=== PATIENT | female | born 1960 | race Hispanic/Latino ===

== ENCOUNTER → 2018-05-31 | Day surgery (SDC) | payer OTHER ==
[~2018-05-31] MED LIST: ALIGN4 MG; ASPIRIN81 MG; BACLOFEN10 MG PO; BENADRYL25 M1; FENTANYL CITRATE/PF 100MCG/2 ML INJ ONE; FIBER GUMMIES; HUMALOG100 UNIT/1 SQ; HYOSCYAMINE SULFATE 0.5 MG/ML INJ ONE; JANUMET 50-5001 EACH PO; LANTUS 3ML100 UNITS/; LEVOTHYROXINE75 MCG PO; LISINOPRIL10 MG PO; MAGNESIUM200 MG/1 M; MIDAZOLAM HCL 2 MG/2 ML VIAL ONE; MULTI-VITAMIN1 EACH PO; PROPOFOL IV EMULSION 10 MG/ML 50 ML VIAL ONE; PROTONIX40 MG; SIMVASTATIN40 MG PO; ULTRAM50 MG PO; VITAMIN B-121000 MCG PO; ZYRTEC10 M3; [UNRECOGNIZED DRUG - OTHER]
--- NOTE | 2018-05-31 09:59 | Operative Report ---
DATE OF PROCEDURE: May 31, 2018 REFERRING PHYSICIAN: Dr. Cat Harris. PROCEDURE PERFORMED: Colonoscopy and polypectomy. INDICATIONS FOR COLONOSCOPY: Colorectal cancer screening. MEDICATION: Patient was done under MAC, please see anesthesiologist's note. PROCEDURE: With patient in left lateral decubitus position, the flexible fiberoptic Olympus colonoscope was inserted into the rectum with ease and advanced all the way to the cecum. The sigmoid colon was sharply angulated and negotiated with difficulty and was suboptimally visualized. The scope was then withdrawn slowly. Mucosa overlying the cecum, ascending colon, transverse colon, and descending colon appeared to be within normal limits. Some diverticular disease was noted in the sigmoid colon. Two polyps were hot biopsied from the sigmoid colon. Five polyps were hot biopsied from the rectum. The scope was then retroflexed into the distal rectum and small internal hemorrhoids were noted, none of which is actively bleeding. The scope was then straightened out and was subsequently withdrawn. Patient tolerated the procedure well. IMPRESSION 1. Diverticulosis. 2. Sharply angulated sigmoid colon, negotiated with difficulty and suboptimally visualized. 3. Sigmoid colon polyps x2, hot biopsied. 4. Rectal polyps x5, hot biopsied. 5. Internal hemorrhoids, none actively bleeding. PLAN: Follow up histology. Initiate high-fiber, low-fat diet. Initiate high-fiber supplement. Patient will need a followup colonoscopy in 3 years. Job#: [id number] [facility] cc:DR. CAT HARRIS
--- NOTE | 2018-05-31 10:22 | Operative Report ---
DICTATION CANCELED BY PHYSICIAN REFERRING PHYSICIAN: Dr. Cricket Roach. PROCEDURE PERFORMED: Colonoscopy and polypectomy. INDICATIONS FOR COLONOSCOPY: Personal history of colon polyps, surveillance colonoscopy. MEDICATION: Patient was done under MAC, please see anesthesiologist's note. PROCEDURE: With patient in left lateral decubitus position, the flexible fiberoptic Olympus colonoscope was inserted into the rectum with ease Job#: [id number] JONH
--- OUTSIDE RECORDS SUMMARY | 2018-06-03 13:41 | XMS REPORT | Continuity of Care Document ---
Author Author [facility] Interface Address Unknown Phone Unavailable Problems Problem Status Onset Date Classification Date Reported Comments Source UNK Active 12/24/2017 [facility] Peripheral vascular disease, unspecified 11/16/2017 02/17/2018 [facility] DX: I73.9=PERIPHERAL VASCULAR DISEASE, U Active 11/02/2017 [facility] Z12.31 - ENCNTR SCREEN MAMMOGRAM FOR MA Active 10/18/2016 PATRICK Munoz V76.12 - SCREEN MAMMOGRA Active 06/22/2014 PATRICK Davey DM (<span ID="[id number]">Confirmed</span>) Active Problem 02/17/2018 [facility] Acid reflux Active Problem 02/17/2018 [facility] Hyperlipidemia Active Problem 02/17/2018 [facility] Hypothyroidism Active Problem 02/17/2018 [facility] Medications Medication Details Route Status Patient Instructions Ordering Provider Order Date Source Allergies, Adverse Reactions, Alerts Substance Category Reaction Severity Reaction type Status Date Reported Comments Source Immunizations Immunization Date Given Site Status Last Updated Comments Source Results Order Name Results Value Reference Range Date Interpretation Comments Source Ext Lower Arterial bilat w pressure US Ext Lower Arterial bilat w pressure US Please refer to heart lab report, located under Vascular in [facility]. 11/11/2017 - - Electronically Signed by: Jude Lopez RT 11/12/17 12:24 FINAL REPORT [facility] Breast Mammo Scrn LEOBARDO incl CAD OK Breast Mammo Scrn LEOBARDO incl CAD OK - BREAST MAMMO SCRN LEOBARDO INCL CAD MA BILATERAL DIGITAL SCREENING MAMMOGRAM WITH CAD: 12/07/2016 CLINICAL: Routine. Current study was evaluated with a Computer Aided Detection (CAD) system. Comparison is made to exams dated: 08/15/2015 mammogram, 07/30/2014 mammogram - [facility], 08/07/2013 mammogram, 06/20/2013 mammogram, 06/06/2012 mammogram and 05/10/2011 mammogram - [facility]. There are scattered fibroglandular densities in both breasts. Stable benign appearing asymmetries are seen in both breasts. There are benign appearing vascular calcifications in both breasts. There also are benign appearing scattered calcifications in both breasts. Additionally there is a biopsy clip in the right breast. No significant masses, calcifications, or other findings are seen in either breast. There has been no significant interval change. IMPRESSION: BENIGN There is no mammographic evidence of malignancy. A 1 year screening mammogram is recommended. Professional services are provided by the [facility]. Ervin Zuniga M.D. rsl/penrad:12/07/2016 12:22:07 Janitorial Account Manager: Geni Hess [facility] This exam was dictated and interpreted by [id number] for KEARA Holden 15. letter sent: Bilateral Benign Mammogram BI-RADS: 2 Benign 12/07/2016 - - Read by: Ervin Zuniga MD Dictated Date/time: 12/07/16 12:22 Electronically Signed by: Ervin Zuniga MD 12/07/16 12:22 FINAL REPORT MIRTHA Munoz Digital Mammo Screen Leobardo MA w elsy Digital Mammo Screen Leobardo MA w elsy - DIGITAL MAMMO SCREEN LEOBARDO MA W ELSY BILATERAL DIGITAL SCREENING MAMMOGRAM 3D/2D WITH CAD: 08/15/2015 CLINICAL: Screening. 2D digital mammographic images and 3D digital tomosynthesis images were obtained in the CC and MLO projections. Current study was evaluated with a Computer Aided Detection (CAD) system. Comparison is made to exams dated: 07/30/2014 mammogram - [facility], 08/07/2013 mammogram, 06/20/2013 mammogram, 06/06/2012 mammogram, 05/10/2011 mammogram and 06/15/2010 mammogram - [facility]. There are scattered fibroglandular densities in both breasts. There are benign vascular calcifications in both breasts. There also are benign appearing scattered calcifications in both breasts. Additionally there is a biopsy clip in the right breast. No significant masses, calcifications, or other findings are seen in either breast. IMPRESSION: BENIGN There is no mammographic evidence of malignancy. A screening mammogram in one year is recommended. Sydney Velazquez M.D. ms/:08/16/2015 07:44:52 Janitorial Account Manager: Agatha Bee RT(R)(M), [facility] This exam was dictated and interpreted by [id number] for Tammy 15. letter sent: Bilateral Benign Mammogram BI-RADS: 2 Benign 08/15/2015 - - Read by: Sydney Velazquez MD Dictated Date/time: 08/16/15 07:44 Electronically Signed by: Sydney Velazquez MD 08/16/15 07:44 FINAL REPORT PATRICK Munoz Vital Signs Vital Sign Value Date Comments Source Encounters Location Location Details Encounter Type Encounter Number Reason For Visit Attending Provider ADM Date DC Date Status Source [facility] [id number] Duane Samson 08/15/2015 [facility]16[facility] [id number] Francishoney Marie 12/07/2016 12/08/2016 [facility] Outpatient [id number] Chaparro Merlos 11/11/2017 11/12/2017 [facility] Procedures Procedure Code Date Perfomer Comments Source Carpal tunnel decompression [id number] [facility] Cholecystectomy [id number] [facility] Hysterectomy [id number] [facility] Inject trigger finger/thumb [id number] [facility] Release of trigger finger [id number] [facility]
--- OUTSIDE RECORDS SUMMARY | 2018-06-03 13:41 | XMS REPORT | Summary of Care ---
Author Author [facility] Organization [facility] Address Unknown Phone Unavailable Encounter HQ Encntr_alias(FIN) [id number] Date(s): 11/11/17 - 11/11/17 [facility] [address] [place] [address]- [phone] Encounter Diagnosis Peripheral vascular disease, unspecified (Final) - 11/15/17 Discharge Disposition: Home or Self Care Attending Physician: Chaparro Merlos DPM Referring Physician: Chaparro Merlos DPM Vital Signs No data available for this section Problem List Condition Effective Dates Status Health Status Informant DM (diabetes Active mellitus)(Confirmed) Acid Active reflux(Confirmed) Hyperlipidemia(Confi Active rmed) Hypothyroidism(Confi Active rmed) Allergies, Adverse Reactions, Alerts Substance Reaction Severity Status NKDA Active Medications No data available for this section Results No data available for this section Immunizations No data available for this section Procedures Procedure Date Related Diagnosis Body Site Status Carpal tunnel decompression Completed Carpal tunnel decompression Completed Cholecystectomy Completed Hysterectomy Completed Inject trigger finger/thumb Completed Release of trigger finger Completed Social History Social History Type Response Substance Abuse Use: None. Alcohol Past, Previous treatment: None. Smoking Status Former smoker; Exposure to Tobacco Smoke None; Cigarette Smoking Last 365 Days No; Reg Smoking Cessation Counseling No entered on: 01/30/18 Assessment and Plan No data available for this section
--- OUTSIDE RECORDS SUMMARY | 2018-06-03 13:41 | XMS REPORT | Summary of Care ---
Author Author [facility] Outpatient Imaging [facility] Outpatient Imaging Counsel[facility] Address Unknown Phone Unavailable Encounter HQ Encntr_aliantonio(JAIR) [id number] Date(s): 08/15/15 - 08/15/15 [facility] Outpatient Imaging [address] [place], [place] [id number]- [phone] Discharge Disposition: Home Attending Physician: Duane Samson MD Vital Signs No data available for this section Problem List No data available for this section Allergies, Adverse Reactions, Alerts No data available for this section Medications No data available for this section Results No data available for this section Immunizations No data available for this section Procedures No data available for this section Social History No data available for this section Assessment and Plan No data available for this section
--- OUTSIDE RECORDS SUMMARY | 2018-06-03 13:41 | XMS REPORT | Summary of Care ---
Author Author [facility] Outpatient Imaging [facility] Outpatient Imaging [place] Address Unknown Phone Unavailable Encounter HQ Encntr_alias(FIN) [id number] Date(s): 12/07/16 - 12/07/16 [facility] Outpatient Imaging [place] [address] [place] [address], [address] [place], [place] [address] [phone] Discharge Disposition: Home or Self Care Attending Physician: Francis Xiao MD Vital Signs No data available for [...]
== END | disposition home or self-care (01) ==
LOC: OR 06:00
PROVIDERS: ATTEND Internal Medicine Gastroenterology
DX: Z12.11 Encounter for screening for malignant neoplasm of colon (principal); K63.5 Polyp of colon; K62.1 Rectal polyp; K57.30 Diverticulosis of large intestine without perforation or abscess without bleeding; K56.609 Unspecified intestinal obstruction, unspecified as to partial versus complete obstruction; K59.00 Constipation, unspecified; K64.8 Other hemorrhoids; E11.9 Type 2 diabetes mellitus without complications; I10 Essential (primary) hypertension; Z01.810 Encounter for preprocedural cardiovascular examination; Z79.82 Long term (current) use of aspirin; Z79.4 Long term (current) use of insulin; Z68.35 Body mass index [BMI] 35.0-35.9, adult; Z87.891 Personal history of nicotine dependence
CPT/HCPCS: 36415; 45384; 82948; 93005; J1980; J2250

== ENCOUNTER 2019-09-17 09:27 | Inpatient (IN) | payer OTHER ==
[~2019-09-17] VITALS: Ht 147.3 cm; Wt 80.9 kg
[~2019-09-17 09:27] MED LIST changes: -FENTANYL CITRATE/PF 100MCG/2 ML INJ ONE; -HYOSCYAMINE SULFATE 0.5 MG/ML INJ ONE; -MIDAZOLAM HCL 2 MG/2 ML VIAL ONE; -PROPOFOL IV EMULSION 10 MG/ML 50 ML VIAL ONE
[2019-09-17] MEDS ORDERED: SODIUM CHLORIDE 0.9% 1000ML 1,000 ML IV STA (09:52)
[2019-09-17 10:20] LABS: BILIRUBIN,URINE NEGATIVE (NEGATIVE); CLARITY,URINE CLEAR (CLEAR); COLOR,URINE YELLOW (YELLOW); KETONES,URINE TRACE (NEGATIVE); LEUKOCYTE ESTERASE ,URINE NEGATIVE (NEGATIVE); NITRITE,URINE NEGATIVE (NEGATIVE); PROTEIN,URINE DIPSTICK NEGATIVE (NEGATIVE); URINE UROBILINOGEN 0.2 mg/dL (0.2 - 1)
[2019-09-17 10:21] LABS: PREGNANCY TEST, URINE NEGATIVE (NEGATIVE)
[2019-09-17] MEDS ORDERED: MORPHINE SULFATE 2 MG/ML SYR 1ML IV ONE (10:30)
[2019-09-17] MEDS ORDERED: ONDANSETRON HCL INJ 2MG/ML 2ML 2 MG/ML VIAL IV ONE (10:30)
[2019-09-17] MEDS ORDERED: CEFEPIME 1GM/NS 0.9% 50 ML 50 ML IV SCH (10:30)
[2019-09-17 10:32] LABS: BACTERIA,URINE FEW /HPF; EPITHELIAL CELLS,URINE FEW /LPF; RBC,URINE 0-5 /HPF (0-5); WBC,URINE (MAN) 0-5 /HPF (0-5)
[2019-09-17 10:49] LABS: BASOPHILS # (AUTO) 0.1 (0.0-0.1); BASOPHILS % 0.4 % (0.0-1.0); EOSINOPHILS # (AUTO) 0.1 (0.0-0.4); EOSINOPHILS % 0.2 % (0.0-6.0); HEMATOCRIT 39.3 % (34.2-44.1); HEMOGLOBIN 12.5 g/dL (12.0-16.0); LYMPHOCYTES # (AUTO) 1.7 (1.0-3.2); LYMPHOCYTES % 7.6 % (18.0-39.1); MEAN CORPUSCULAR HEMOGLOBIN 28.2 pg (28-32); MEAN CORPUSCULAR HGB CONC 31.8 g/dL (31-35); MEAN CORPUSCULAR VOLUME 88.5 fL (81-99); MONOCYTES # (AUTO) 1.3 (0.2-0.8); MONOCYTES % 5.6 % (4.4-11.3); NEUTROPHILS # (AUTO) 18.9 (2.1-6.9); PLATELET COUNT 400 x10e3/uL (140-360); RED BLOOD COUNT 4.44 x10e6/uL (3.6-5.1); RED CELL DISTRIBUTION WIDTH 14.8 % (11.7-14.4)
[2019-09-17 11:46] LABS: ALANINE AMINOTRANSFERASE 59 IU/L (0-55); ALBUMIN 3.2 g/dL (3.5-5.0); ALBUMIN/GLOBULIN RATIO 1.2 (0.8-2.0); ALKALINE PHOSPHATASE 66 IU/L (40-150); AMYLASE 88 U/L (25-125); ANION GAP 19.1 mmol/L (8-16); BLOOD UREA NITROGEN 17 mg/dL (7-26); BUN/CREATININE RATIO 19 (6-25); CALCIUM 8.6 mg/dL (8.4-10.2); CARBON DIOXIDE 20 mmol/L (22-29); CHLORIDE 95 mmol/L (98-107); CREATININE, SERUM 0.88 mg/dL (0.57-1.11); EST GLOMERULAR FILTRATION RATE > 60 ML/MIN (60-); GLUCOSE 257 mg/dL (74-118); LIPASE 12 U/L (8-78); SODIUM 129 mmol/L (136-145)
[2019-09-17 11:47] LABS: POTASSIUM 5.1 mmol/L (3.5-5.1)
--- NOTE | 2019-09-17 14:08 | Diagnostic Imaging Report ---
CT scan of the abdomen and pelvis. Medical history: Abdominal pain. Comparison study: None available. Technique: Contiguous helical slices were acquired through the abdomen and pelvis post administration of intravenous contrast. No oral contrast was administered. This exam was performed according to our department dose optimization program which includes automated exposure control, adjustment of the mA and/or kV according to the patient's size and/or use of iterative reconstruction technique. Findings: The visualized lung nichole are clear. The liver, spleen, adrenal glands and kidneys are unremarkable. Cholecystectomy clips are seen with the CBD at the upper limits of normal for a post cholecystectomy patient measuring up to 1.0 cm. No focal pancreatic abnormality is seen. There are no dilated loops of bowel seen suggest obstruction. Significant thickening of the colon is seen extending from the distal transverse colon to the descending colon. Pericolonic stranding is noted. The appendix is not seen but no obvious signs of appendicitis are noted. The uterus has been resected. A 4.8 x 3.5 cm septated mass is seen superior to the vaginal cuff containing a septation with a calcification. No free fluid or free air is seen. The aorta is normal in caliber. Atherosclerosis is seen. No suspicious adenopathy is noted. Some gas is seen in the bladder. Impression: 1. Colitis extending from the distal transverse colon to descending colon. Potential etiologies include infection and inflammatory bowel disease. Ischemic bowel related to the left colic artery would also been the differential. The origin of the BRIAN appears patent. 2. Small focus of gas within the bladder. If there has not been recent bladder instrumentation, a cystitis or fistula cannot be excluded. 3. Status post cholecystectomy with prominence of the CBD. If the patient's biliary enzymes are increased, MRCP could be obtained. 4. Status post hysterectomy with a septated cystic mass containing a calcified septation in the uterine fossa, possibly an ovarian lesion. Further assessment with pelvic ultrasound is recommended to exclude an ovarian mass. Signed by: Romaine Castanon MD on 09/17/2019 2:06 PM
--- OUTSIDE RECORDS SUMMARY | 2019-09-17 15:25 | XMS REPORT ---
Author Author [facility] Address Unknown Phone Unavailable Care Team Providers Care Song Plugger Name Role Phone Mitch ZIMMERMAN Unavailable Unavailable Problems This patient has no known problems. Allergies, Adverse Reactions, Alerts This patient has no known allergies or adverse reactions. Medications This patient has no known medications. Results Test Description Test Time Test Comments Text Results Atomic Results Result Comments CT ABDOMEN/PELVIS W 2019-09-17 13:57:00 [place] [address] Patient Name: ROXANNE HAMILTON MR #: [id number] : 1960 Age/Sex: 59/F Req #: [id number] Adm Physician: Ordered by: DIEGO ZIMMERMAN MD Report #: [id number] Location: ER Room/Bed: Procedure: [id number] CT/CT ABDOMEN/PELVIS W Exam Date: 09/17/19 Exam Time: 1237 REPORT STATUS: Signed CT scan of the abdomen and pelvis. Medical hist ory: Abdominal pain. Comparison study: None available. Technique: Contiguous helical slices were acquired through the abdomen and pelvis post administration of intravenous contrast. No oral contrast was administered. This exam was performed according to our department dose optimization program which includes automated exposure control, adjustment of the mA and/or kV according to the patient's size and/or use of iterative reconstruction technique. Findings: The visualized lung nichole are clear. The liver, spleen, adrenal glands and kidneys are unremarkable. Cholecystectomy clips are seen with the CBD at the upper limits of normal for a post cholecystectomy patient measuring up to 1.0 cm. No focal pancreatic abnormality is seen. There are no dilated loops of bowel seen suggest obstruction. Significant thickening of the colon is seen extending from the distal transverse colon to the descending colon. Pericolonic stranding is noted. The appendix is not seen but no obvious signs of appendicitis are noted. The uterus has been resected. A 4.8 x 3.5 cm septated mass is seen superior to the vaginal cuff containing a septation with a calcification. No free fluid or free air is seen. The aorta is normal in caliber. Atherosclerosis is seen. No suspicious adenopathy is noted. Some gas is seen in the bladder. Impression: 1. Colitis extending from the distal transverse colon to descending colon. Potential etiologies include infection and inflammatory bowel disease. Ischemic bowel related to the left colic artery would also been the differential. The origin of the BRIAN appears patent. 2. Small focus of gas within the bladder. If there has not been recent bladder instrumentation, a cystitis or fistula cannot be excluded. 3. Status post cholecystectomy with prominence of the CBD. If the patient's biliary enzymes are increased, MRCP could be obtained. 4. Status post hysterectomy with a septated cystic mass containing a calcified septation in the uterine fossa, possibly an ovarian lesion. Further assessment with pelvic ultrasound is recommended to exclude an ovarian mass. Signed by: Romaine Castanon MD on 09/17/2019 2:06 PM Dictated By: ROMAINE CASTANON MD 05 Transcribed By: ELIZA on 09/17/191405 COPY TO: DIEGO ZIMMERMAN MD
[2019-09-17] MEDS: PIPER-TAZ 3.375 GM 50 ML IV SCH ×2 (15:30→23:05)
[2019-09-17] MEDS: ONDANSETRON HCL INJ 2MG/ML 2ML 2 MG/ML VIAL IV PRN (15:30)
[2019-09-17] MEDS: SODIUM CHLORIDE 0.9% 1000ML 1,000 ML IV SCH (15:30)
[2019-09-17] MEDS: MORPHINE SULFATE 2 MG/ML SYR 1ML IV PRN (15:30)
[2019-09-17] MEDS: METRONIDAZOLE 500MG/NS 100ML 100 ML IV SCH (17:32)
[2019-09-17] MEDS ORDERED: IOPAMIDOL 370 MG/ML 200 ML INFUS..BTL INJ ONE (18:02)
[2019-09-17] MEDS ORDERED: SODIUM CHLORIDE 0.9% 50ML 50 ML ONE (18:02)
[2019-09-18] MEDS: METRONIDAZOLE 500MG/NS 100ML 100 ML IV SCH ×4 (01:03→20:48)
[2019-09-18] MEDS: SODIUM CHLORIDE 0.9% 1000ML 1,000 ML IV SCH ×4 (05:07→22:31)
[2019-09-18] MEDS: PIPER-TAZ 3.375 GM 50 ML IV SCH ×4 (05:07→21:40)
[2019-09-18 05:28] LABS: BASOPHILS # (AUTO) 0.1 (0.0-0.1); BASOPHILS % 0.5 % (0.0-1.0); EOSINOPHILS # (AUTO) 0.1 (0.0-0.4); EOSINOPHILS % 0.8 % (0.0-6.0); HEMATOCRIT 39.3 % (34.2-44.1); HEMOGLOBIN 12.4 g/dL (12.0-16.0); LYMPHOCYTES # (AUTO) 2.9 (1.0-3.2); LYMPHOCYTES % 23.1 % (18.0-39.1); MEAN CORPUSCULAR HEMOGLOBIN 27.8 pg (28-32); MEAN CORPUSCULAR HGB CONC 31.6 g/dL (31-35); MEAN CORPUSCULAR VOLUME 88.1 fL (81-99); MONOCYTES # (AUTO) 0.8 (0.2-0.8); MONOCYTES % 6.4 % (4.4-11.3); NEUTROPHILS # (AUTO) 8.7 (2.1-6.9); NEUTROPHILS % 67.9 % (38.7-80.0); PLATELET COUNT 429 x10e3/uL (140-360); RED BLOOD COUNT 4.46 x10e6/uL (3.6-5.1); RED CELL DISTRIBUTION WIDTH 14.9 % (11.7-14.4)
[2019-09-18 05:50] LABS: ALANINE AMINOTRANSFERASE 55 IU/L (0-55); ALBUMIN 3.4 g/dL (3.5-5.0); ALKALINE PHOSPHATASE 60 IU/L (40-150); ANION GAP 22.5 mmol/L (8-16); BLOOD UREA NITROGEN 13 mg/dL (7-26); BUN/CREATININE RATIO 16 (6-25); CALCIUM 8.9 mg/dL (8.4-10.2); CARBON DIOXIDE 18 mmol/L (22-29); CHLORIDE 103 mmol/L (98-107); CREATININE, SERUM 0.83 mg/dL (0.57-1.11); EST GLOMERULAR FILTRATION RATE > 60 ML/MIN (60-); GLUCOSE 119 mg/dL (74-118); POTASSIUM 4.5 mmol/L (3.5-5.1); SODIUM 139 mmol/L (136-145)
[2019-09-18] MEDS: MORPHINE SULFATE 2 MG/ML SYR 1ML IV PRN ×2 (07:41→13:37)
--- NOTE | 2019-09-18 09:25 | NUR ---
dr elva tapia at pt bedside
[2019-09-18] MEDS ORDERED: DEXTROSE 50% SYRINGE 50 ML IV PRN (15:15)
[2019-09-18 15:21] VITALS: BP 131/59
[2019-09-18 15:27] VITALS: BP 131/59
--- NOTE | 2019-09-18 15:40 | NUR ---
patient received via stretcher. see admit assess. vitals stable with no distress. abx being started.
[2019-09-18] MEDS: INSULIN LISPRO 100 UNIT/1 ML 3ML VIAL SQ SCH ×2 (16:30→20:28)
[2019-09-18 17:06] VITALS: BP 152/67
--- NOTE | 2019-09-18 19:44 | NUR ---
SBAR report received from fernando GILL, patient seen with spouse at bedside, AOX4, syrian primary language, c/o JOSEPH pain, patient very upset about not seeing the doctor, and would like pain medication for JOSEPH, patient reeducated about colitis and bowel/stomach rest, IV patent flushes well, IV hydration in place, will continue to monitor
[2019-09-18 20:00] VITALS: BP 120/56
[2019-09-18 20:30] VITALS: BP 120/56
[2019-09-18 20:40] VITALS: BP 120/56
[2019-09-19] VITALS (19 sets, daily range): BP systolic 12–174; BP diastolic 47–69
[2019-09-19] MEDS ORDERED: CITRATE OF MAGNESIA 300ML BOTTLE PO ONE ×2 (00:15→08:00)
--- NOTE | 2019-09-19 00:30 | NUR ---
MD Bruno Crawford rounding on patient, pt made aware that in the am she will have colonoscopy, start bowel prep, pt refused Golytely, so MD Bruno Crawford ordered bowel prep to start at 0700 Dulcolax Q30min X 3 doses and mag citrate X 2 doses 0700 0800 respectively, will be endorsed to am shift to start patient, consent in chart for colonoscopy
[2019-09-19] MEDS: ONDANSETRON HCL INJ 2MG/ML 2ML 2 MG/ML VIAL IV PRN (01:55)
--- NOTE | 2019-09-19 01:58 | NUR ---
patient c/o N/V with headache MD Kobe Crawford notified, MD Kwong covering ordered tylenol 650 PO Q4H PRN For JOSEPH
[2019-09-19] MEDS: ACETAMINOPHEN 325 MG TAB PO PRN ×2 (02:15→09:14)
[2019-09-19] MEDS: PANTOPRAZOLE 40 MG 10ML VIAL IV SCH ×3 (02:38→20:36)
[2019-09-19] MEDS: PIPER-TAZ 3.375 GM 50 ML IV SCH ×2 (03:08→08:52)
[2019-09-19] MEDS: METRONIDAZOLE 500MG/NS 100ML 100 ML IV SCH ×3 (05:14→22:43)
[2019-09-19 06:35] LABS: BASOPHILS # (AUTO) 0.2 (0.0-0.1); BASOPHILS % 0.9 % (0.0-1.0); EOSINOPHILS % 0.1 % (0.0-6.0); HEMATOCRIT 46.1 % (34.2-44.1); HEMOGLOBIN 12.9 g/dL (12.0-16.0); LYMPHOCYTES % 5.2 % (18.0-39.1); MEAN CORPUSCULAR HEMOGLOBIN 27.8 pg (28-32); MEAN CORPUSCULAR VOLUME 99.4 fL (81-99); MONOCYTES # (AUTO) 0.8 (0.2-0.8); MONOCYTES % 4.1 % (4.4-11.3); NEUTROPHILS # (AUTO) 17.1 (2.1-6.9); NEUTROPHILS % 85.1 % (38.7-80.0); PLATELET COUNT 382 x10e3/uL (140-360); RED BLOOD COUNT 4.64 x10e6/uL (3.6-5.1); RED CELL DISTRIBUTION WIDTH 15.5 % (11.7-14.4)
--- NOTE | 2019-09-19 06:35 | NUR ---
RECD PT SITTING ON SIDE OF BED ,C/O SOB,023 SATS 100%,APPLIED 02 2L FOR COMFORT.PAGED DR LOBATO,RE;LAB RESULTS.
[2019-09-19] MEDS ORDERED: BISACODYL 5 MG TAB EC PO ONE ×3 (07:00→08:00)
[2019-09-19 07:20] LABS: HYPOCHROMASIA SLIGHT
[2019-09-19] MEDS: CITRATE OF MAGNESIA 300ML BOTTLE PO SCH ×2 (07:53→08:35)
[2019-09-19 07:54] LABS: ALANINE AMINOTRANSFERASE 53 IU/L (0-55); ALBUMIN 3.5 g/dL (3.5-5.0); ALBUMIN/GLOBULIN RATIO 1.1 (0.8-2.0); ALKALINE PHOSPHATASE 86 IU/L (40-150); BLOOD UREA NITROGEN 21 mg/dL (7-26); BUN/CREATININE RATIO 16 (6-25); CALCIUM 9.2 mg/dL (8.4-10.2); CHLORIDE 105 mmol/L (98-107); CREATININE, SERUM 1.33 mg/dL (0.57-1.11); EST GLOMERULAR FILTRATION RATE 41 ML/MIN (60-); GLUCOSE 343 mg/dL (74-118); POTASSIUM 5.7 mmol/L (3.5-5.1); SODIUM 139 mmol/L (136-145)
[2019-09-19] MEDS: INSULIN LISPRO 100 UNIT/1 ML 3ML VIAL SQ SCH (08:00)
[2019-09-19 08:07] LABS: ANION GAP 34.7 mmol/L (8-16); CARBON DIOXIDE < 5 mmol/L (22-29)
--- NOTE | 2019-09-19 09:00 | NUR ---
PT STILL SOB,SPOKE WITH DR LOBATO ,ORDERS GIVEN.
[2019-09-19] MEDS ORDERED: FUROSEMIDE INJ 10 MG/ML 4 ML VIAL IV ONE (09:30)
--- NOTE | 2019-09-19 10:00 | NUR ---
SPOKE WITH DR SPENCER RE; COLON PREP,INFORMED HIN OF PT SOB,AND CRITICAL LABS,ORDERS WRITTEN.
--- NOTE | 2019-09-19 10:55 | NUR ---
SPOKE WITH DR JOYCE RE CONSULT ORDERS WRITTEN ,PT TO BE TRANSFERRED TO ICU.
[2019-09-19 10:58] LABS: ABG HCO3 3 mmol/L (23-28); ABG PCO2 13 mmHg (41-51); ABG PH 6.97 (7.31-7.41); ABG PO2 140 mmHg (80-105)
--- NOTE | 2019-09-19 11:04 | Diagnostic Imaging Report ---
Examination: Single AP view of the chest. COMPARISON: None. INDICATION: pneumonia DISCUSSION: Lines/tubes: None. Lungs: The lungs are well inflated and clear. No pneumonia or pulmonary edema. Pleura: No pleural effusion or pneumothorax. Heart and mediastinum: The heart and the mediastinum are unremarkable. Bones and soft tissues: No acute bony abnormalities. IMPRESSION: 1. No acute cardiopulmonary abnormalities. Signed by: Dr. Cricket Walter M.D. on 09/19/2019 11:02 AM
[2019-09-19] MEDS: ALBUTEROL SULF 0.083% NEB SOLN 3 ML NEB NEB SCH ×4 (11:05→22:50)
[2019-09-19 11:45] LABS: BASOPHILS # (AUTO) 0.3 (0.0-0.1); BASOPHILS % 0.8 % (0.0-1.0); EOSINOPHILS # (AUTO) 0.1 (0.0-0.4); EOSINOPHILS % 0.4 % (0.0-6.0); HEMATOCRIT 47.5 % (34.2-44.1); HEMOGLOBIN 13.6 g/dL (12.0-16.0); LYMPHOCYTES # (AUTO) 2.5 (1.0-3.2); LYMPHOCYTES % 7.3 % (18.0-39.1); MEAN CORPUSCULAR HEMOGLOBIN 28.1 pg (28-32); MEAN CORPUSCULAR HGB CONC 28.6 g/dL (31-35); MEAN CORPUSCULAR VOLUME 98.1 fL (81-99); MONOCYTES # (AUTO) 2.5 (0.2-0.8); MONOCYTES % 7.4 % (4.4-11.3); NEUTROPHILS # (AUTO) 26.6 (2.1-6.9); NEUTROPHILS % 78.7 % (38.7-80.0); PLATELET COUNT 581 x10e3/uL (140-360); RED BLOOD COUNT 4.84 x10e6/uL (3.6-5.1); RED CELL DISTRIBUTION WIDTH 15.9 % (11.7-14.4)
[2019-09-19] MEDS ORDERED: SODIUM CHLORIDE 0.9% 1000ML 1,000 ML IV SCH ×3 (11:45→13:45)
[2019-09-19] MEDS ORDERED: SODIUM CHLORIDE 0.9% 1000ML 1,000 ML IV ONE ×2 (11:45→12:30)
--- NOTE | 2019-09-19 11:52 | NUR ---
PT TRANSFERRED TO ICU VIA BED ,[address],BOLUS FLUIDS INFUSING ORDERED,
[2019-09-19] MEDS ORDERED: VANCOMYCIN 1GM/NS 250 ML 250 ML IV SCH (12:00)
[2019-09-19] MEDS ORDERED: CEFEPIME 1GM/NS 0.9% 50 ML 50 ML IV SCH (12:00)
[2019-09-19] MEDS ORDERED: SODIUM CHLORIDE 0.9% 250ML 250 ML IV SCH (12:15)
[2019-09-19 12:26] LABS: INR 1.1; PROTHROMBIN TIME 14.5 seconds (11.9-14.5)
[2019-09-19 12:27] LABS: PARTIAL THROMBOPLASTIN TIME 28.5 seconds (23.8-35.5)
--- NOTE | 2019-09-19 12:47 | Diagnostic Imaging Report ---
Exam:Abdominal radiograph History:Bowel perforation Comparison: None available Findings: Air within the stomach. Nonobstructive bowel gas pattern. No visualized free air. Impression: Nonobstructive bowel gas pattern Signed by: Dr. Cricket Walter M.D. on 09/19/2019 12:45 PM
[2019-09-19 13:02] LABS: ALANINE AMINOTRANSFERASE 62 IU/L (0-55); ALBUMIN 3.4 g/dL (3.5-5.0); ALBUMIN/GLOBULIN RATIO 1.1 (0.8-2.0); ALKALINE PHOSPHATASE 94 IU/L (40-150); BLOOD UREA NITROGEN 22 mg/dL (7-26); BUN/CREATININE RATIO 14 (6-25); CALCIUM 8.9 mg/dL (8.4-10.2); CHLORIDE 104 mmol/L (98-107); CREATININE, SERUM 1.55 mg/dL (0.57-1.11); EST GLOMERULAR FILTRATION RATE 34 ML/MIN (60-); POTASSIUM 4.8 mmol/L (3.5-5.1); SODIUM 139 mmol/L (136-145)
[2019-09-19 13:08] LABS: ANION GAP 34.8 mmol/L (8-16)
[2019-09-19 13:09] LABS: CARBON DIOXIDE < 5 mmol/L (22-29); GLUCOSE 441 mg/dL (74-118)
[2019-09-19 13:17] LABS: CLARITY,URINE SL CLOUDY (CLEAR); COLOR,URINE YELLOW (YELLOW); LEUKOCYTE ESTERASE ,URINE NEGATIVE (NEGATIVE); NITRITE,URINE NEGATIVE (NEGATIVE)
[2019-09-19 13:18] LABS: BILIRUBIN,URINE NEGATIVE (NEGATIVE); KETONES,URINE 2+ (NEGATIVE); PROTEIN,URINE DIPSTICK NEGATIVE (NEGATIVE); URINE UROBILINOGEN 0.2 mg/dL (0.2 - 1)
[2019-09-19 13:21] LABS: BACTERIA,URINE RARE /HPF; EPITHELIAL CELLS,URINE FEW /LPF
[2019-09-19] MEDS ORDERED: INSULIN REGULAR, HUMAN 100 UNIT/1 ML 3ML VIAL IV ONE (14:00)
[2019-09-19 14:15] LABS: ABG HCO3 3 mmol/L (23-28); ABG PCO2 12 mmHg (41-51); ABG PH 7.05 (7.31-7.41); ABG PO2 127 mmHg (80-105)
[2019-09-19] MEDS ORDERED: INSULIN REGULAR, HUMAN 3ML VL 100 UNIT in SODIUM CHLORIDE 0.9% 100 ML 99 ML IV SCH ×2 (14:15)
[2019-09-19] MEDS ORDERED: SODIUM BICARBONATE 8.4% INJ 50 ML SYR IV ONE (14:30)
--- NOTE | 2019-09-19 14:41 | Diagnostic Imaging Report ---
EXAMINATION: CT of the abdomen and pelvis without contrast. TECHNIQUE: Helical CT images of the abdomen and pelvis were performed from the lung bases to the lesser trochanters. No intravenous contrast was given per renal stone protocol. Coronal and sagittal reformatted images were obtained. Dose modulation, iterative reconstruction, and/or weight based adjustment of the mA/kV was utilized to reduce the radiation dose to as low as reasonably achievable COMPARISON: None. CLINICAL HISTORY: evaluate for bowel perforation DISCUSSION: ABSENCE OF INTRAVENOUS CONTRAST DECREASES SENSITIVITY FOR DETECTION OF FOCAL LESIONS AND VASCULAR PATHOLOGY. ABDOMEN/PELVIS: LOWER THORAX: Unremarkable. HEPATOBILIARY:No focal hepatic lesions. No biliary ductal dilation. Cholecystectomy. SPLEEN: No splenomegaly. PANCREAS: No focal masses or ductal dilatation. ADRENALS: No adrenal nodules. KIDNEYS/URETERS: No hydronephrosis, stones, or solid mass lesions. PELVIC ORGANS/BLADDER: Sorenson catheter in the bladder. Hysterectomy with stable 4.7cm adnexal cystic lesion. PERITONEUM/RETROPERITONEUM: No free air or fluid. LYMPH NODES: No intra-abdominal,retroperitoneal, pelvic or inguinal lymphadenopathy. VESSELS: Limited GI TRACT: Stable colonic wall thickening. Stomach mildly distended. BONES AND SOFT TISSUES: No bony destructive lesions. No soft tissue abnormalities. IMPRESSION: No bowel perforation. Stable colonic wall thickening/colitis. Signed by: Dr. Cricket Walter M.D. on 09/19/2019 2:39 PM
[2019-09-19] MEDS ORDERED: DEXTROSE 50% SYRINGE 50 ML IV PRN (15:00)
[2019-09-19] MEDS: INSULIN REGULAR, HUMAN 3ML VL 100 UNIT in SODIUM CHLORIDE 0.9% 99 ML IV SCH ×2 (15:10)
--- NOTE | 2019-09-19 15:18 | Progress Note ---
DATE: 09/19/2019 Internal Medicine Progress Note SUBJECTIVE: The patient is complaining of shortness of breath, abdominal pain. She is transferred from the medical floor to intensive care unit. She had a blood gas, which showed metabolic acidosis, most likely secondary to sepsis. Earlier, she was found to have colitis on the left side of the colon, started on broad-spectrum IV antibiotics. Dr. Karl Crawford is there for Gastroenterology. Dr. Ervin [place] has been consulted from the Critical Care, Dr. Matt Hdz is a surgeon on the case. PHYSICAL EXAMINATION: HEART: Showed regular rhythm. Normal S1, S2 sound. LUNGS: Clear bilaterally. ABDOMEN: Soft and nontender. No distention. No visceromegaly. EXTREMITIES: Show no evidence of edema. VITAL SIGNS: Blood pressure 146/62, temperature 97.9, heart rate 108 per minute, respiratory rate 18 per minute, oxygen saturation 100%. LABORATORY DATA: On the BMP; sodium 139, potassium 5.2, chloride 105, CO2 is only 6, BUN 21, creatinine 1.33, glucose 343. White blood count is 20,000, hemoglobin 12.9, hematocrit 46.1, and platelet count 382,000. AST 31, ALT 53, total bilirubin 0.2, alkaline phosphatase 86. Lactic acid has been ordered, was elevated also. FINAL IMPRESSION: 1. Sepsis, most likely intraabdominal in origin. 2. Metabolic acidosis secondary to sepsis. 3. Colitis. 4. Acute renal failure. 5. Hyperkalemia. PLAN OF TREATMENT: Continue IV fluids with normal saline at 100 mL an hour. Albuterol q.4 hours. Continue Metronidazole 500 mg IV q.8 hours, Zosyn q.6 hours. Continue vancomycin. Continue Protonix 40 mg twice a day, Zofran 4 mg IV q.4 hours as needed, Tylenol 650 mg q.4 hours as needed. Continue D50 IV push as needed. We are going to do stat CT of the abdomen and pelvis. We are going to consult Dr. Spencer Infectious Disease. CT of the abdomen and pelvis. The patient will remain in the intensive care unit. She is in critical situation. MD MARCELL Pena/MODL /[id number]
--- NOTE | 2019-09-19 15:33 | NUR ---
pulmonary/critical care [id number] Thanks
--- NOTE | 2019-09-19 15:37 | NUR ---
pulmonary/critical care Fluid status remains reasonable for now, with reasonable urine output and good blood pressure. Recent CXR was with clear lung nichole a couple hours ago. We can give more IVF boluses if required. Continue IVF per DKA protocol in addition to the ordered boluses.
[2019-09-19] MEDS ORDERED: SODIUM CHLORIDE 0.9% 500ML 500 ML IV ONE (15:45)
--- NOTE | 2019-09-19 16:09 | Progress Note ---
DATE: 09/19/2019 ADDENDUM: The patient has a high blood sugar. She also had a metabolic acidosis . We are going to reconsulting Dr. Crawford for Endocrinology for starting the insulin drip protocol. The patient also has metabolic acidosis also secondary to sepsis. She is already on broad-spectrum IV antibiotics. She is on IV fluids. Abdominal x-ray will be done. Dr. [place] is on the case from Pulmonary Critical Care. Dr. Spencer will be consulted from Infectious Diseases. Dr. Hdz is on-call also, he is on the case also for surgery. The patient has severe colitis, most likely sepsis. Spencer Kwong MD LAS/MODL /[id number]
[2019-09-19] MEDS: CEFEPIME 2 GM/NS 0.9% 100 ML 100 ML IV SCH (16:11)
[2019-09-19 16:52] LABS: BASOPHILS # (AUTO) 0.2 (0.0-0.1); BASOPHILS % 0.5 % (0.0-1.0); HEMATOCRIT 38.2 % (34.2-44.1); HEMOGLOBIN 11.6 g/dL (12.0-16.0); LYMPHOCYTES # (AUTO) 2.4 (1.0-3.2); LYMPHOCYTES % 7.3 % (18.0-39.1); MEAN CORPUSCULAR HEMOGLOBIN 28.1 pg (28-32); MEAN CORPUSCULAR HGB CONC 30.4 g/dL (31-35); MEAN CORPUSCULAR VOLUME 92.5 fL (81-99); MONOCYTES # (AUTO) 1.9 (0.2-0.8); MONOCYTES % 5.8 % (4.4-11.3); NEUTROPHILS # (AUTO) 26.4 (2.1-6.9); NEUTROPHILS % 80.6 % (38.7-80.0); PLATELET COUNT 466 x10e3/uL (140-360); RED BLOOD COUNT 4.13 x10e6/uL (3.6-5.1); RED CELL DISTRIBUTION WIDTH 15.3 % (11.7-14.4)
[2019-09-19 17:08] LABS: AMYLASE 229 U/L (25-125); LIPASE 10 U/L (8-78)
[2019-09-19 17:16] LABS: BAND NEUTROPHILS % (MANUAL) 2 %; LYMPHOCYTES % (MANUAL) 7 % (19-48); METAMYELOCYTES % (MANUAL) 1 % (0-0); MONOCYTES % (MANUAL) 3 % (3.4-9.0); MYELOCYTES % (MANUAL) 1 % (0-0); NEUTROPHILS % (MANUAL) 86 % (40-74); PLATELET ESTIMATE ADEQUATE; PLATELET MORPHOLOGY COMMENT NORMAL; RBC MORPHOLOGY COMMENT NORMAL
[2019-09-19 17:45] LABS: FREE T4 (FREE THYROXINE) 1.22 ng/dL (0.8-1.8); THYROID STIMULATING HORMONE 0.592 uIU/mL (0.350-4.940)
[2019-09-19 17:50] LABS: ANION GAP 31.8 mmol/L (8-16); CALCIUM 7.9 mg/dL (8.4-10.2); CREATININE, SERUM 1.29 mg/dL (0.57-1.11); POTASSIUM 3.8 mmol/L (3.5-5.1)
[2019-09-19] MEDS: DEXTROSE 5%/0.45% SOD CHL 1,000 ML IV SCH (17:52)
--- NOTE | 2019-09-19 18:00 | NUR ---
Note of shift. Received pt to ICU 189. Multiple critical labs. Dr Carson was aware, orders to correct critical values were not given until Dr Carson was comfortable with differential diagnoses. Dr Carson had ordered for 2 liters NS moderate rate bolus at 500cc/hr then Dr Jazmine Parker ordered a 3rd liter of NS bolus and placement of a NGT to suction. Insulin drip was started and then changed by Dr Crawford coming in to see pt. Dr Crawford was aware of bolus rate and ordered for the D5 1/2 NS to start after all of the NS was infused. The follow up CO2 of [address] Carson and he ordered to recheck pH at 9 pm. Otherwise, pt appears improved.
--- NOTE | 2019-09-19 19:00 | NUR ---
Report received. Assumed care. Assessment done. See interventions.
[2019-09-19] MEDS ORDERED: SODIUM CHLORIDE 0.9% 250ML IRRIG IR SCH (19:45)
[2019-09-19] MEDS ORDERED: SODIUM CHLORIDE 0.9% 250ML 250 ML ONE (20:42)
--- NOTE | 2019-09-19 21:09 | NUR ---
ABG results called to Dr. Carson. No new orders.
[2019-09-19 21:11] LABS: ABG PCO2 20 mmHg (41-51); ABG PH 7.26 (7.31-7.41)
[2019-09-19 21:12] LABS: ABG HCO3 9 mmol/L (23-28); ABG PO2 94 mmHg (80-105)
--- NOTE | 2019-09-19 21:30 | Consultation ---
DATE OF CONSULTATION: 09/19/2019 Endocrine Consultation This is a patient Dr. Crawford. Thank you very much for referring this patient. HISTORY OF PRESENT ILLNESS: This is a 59-year-old lady, who was referred to me for evaluation of diabetic ketoacidosis. The patient reportedly is a known diabetic for almost 15 years and takes a combination of Lantus and Humalog insulin at home. The patient came to the hospital with history of abdominal pain and she was found to have ischemic colitis. During the hospital stay, her blood sugars were high and finally she went into ketoacidosis and severe dehydration. The patient also has history of hypertension and hypothyroidism. PHYSICAL EXAMINATION: GENERAL: Today, the patient is alert and awake. She is short of breath. She has Kussmaul breathing. VITAL SIGNS: Heart rate is around 100 and blood pressure is 120/80 mmHg. HEENT: Essentially unremarkable. Thyroid is palpable. Clinically, she is near euthyroid. CHEST: Bilateral vesicular breathing. She has mild bronchospasm. CARDIAC: First and second heart sounds. There is no third or fourth heart sounds. Ejection systolic murmur sound grade 2/6. ABDOMEN: Distended abdomen and tenderness in the right upper quadrant and epigastric area. EXTREMITIES: The patient has evidence of diabetic sensory neuropathy in both lower extremities. LABORATORY DATA: Her blood sugar today is around 441, anion gap is around 34.9, and her BUN and creatinine are slightly elevated. CLINICAL IMPRESSION: Diabetes mellitus type 2, diabetic ketoacidosis, ischemic colitis, and pelvic mass. PLAN: At this time, aggressively IV fluids, hydration, and insulin drip. We will also do a hemoglobin A1c and thyroid function tests. Thanks again for referring this patient. I will follow this patient with you. MD EDU Bridges/CAMILOL /[id number]
--- NOTE | 2019-09-19 21:40 | Consultation ---
DATE OF CONSULTATION: 09/19/2019 REASON FOR CONSULTATION: Sepsis, colitis. HISTORY OF PRESENT ILLNESS: This patient who is a 59-year-old female, comes to the emergency room with 1-day history of abdominal pain diffuse, mainly in the upper abdomen. Not feeling well, felt feverish, came to the emergency room. She was seen by Surgery. CAT scan was ordered. When she first came, her white count was 22,000, it went up to 33,000; her hematocrit is 47, and her platelets 58. Her sodium 139, potassium 4.8 with creatinine of 1.55. MEDICATIONS: She is currently on insulin, vancomycin, Zosyn, and metronidazole. She had a CAT scan, which was done, discussed with Surgery. There was no bowel perforation, stable colon wall thickening/colitis. She did have colitis extending from the distal transverse colon to descending colon. A small focus of gas within the bladder. REVIEW OF SYSTEMS: CONSTITUTIONAL: She is just really not feeling well. This is the first time she got sick. HEENT: There is no headache or visual changes. GI: No nausea, but there is abdominal discomfort. No diarrhea. PHYSICAL EXAMINATION: GENERAL: She is currently alert, oriented, does not seem to be in acute distress. VITAL SIGNS: Stable, currently afebrile. HEENT: Not icteric. NECK: Supple. CHEST: Clear bilaterally. ABDOMEN: Soft and distended. EXTREMITIES: No edema. SKIN: There is no rash. IMPRESSION: Colitis, getting worse. No perforation. I would recommend to change Flagyl to 500 IV q.6h. Continue with cefepime 2 g q.12h. Check amylase and lipase. Check CBC daily. NG tube to low intermittent suction. The patient denies any eating outside the house or any something bad recently according to her. We will put her on cefepime 2 g q.12h and Flagyl 500 q.6h. stop other antibiotics. Recheck CBC. MD PATRICK Garcia/CAMILOL /[id number]
--- NOTE | 2019-09-19 22:20 | Consultation ---
DATE OF CONSULTATION: 09/19/2019 Pulmonary and Critical Care Medicine Consult REASON FOR REFERRAL: Multiorgan dysfunction pending, evolution. HISTORY OF PRESENT ILLNESS: Ms. Spencer is a pleasant 59-year-old female with critical metabolic acidosis. The patient was admitted to [facility] on September 17, 2019. The patient noted in the emergency room to have abdominal pain. Onset x1 week. Progressively worse. In the emergency room, she proceeded to have abdominal CT demonstrating minimal transverse colitis with descending colon with at least moderate inflammation within the bowel lumen, although not a lot of extra colonic inflammation. Lipase was negative. Lactic acid was 2.6. Serum bicarbonate was 20. Glucose was 257. Chest x-ray was unremarkable. White count was 20,000 with 84% segmented cells and 19% bands. She was admitted. During the course of her hospitalization, she began to have more tachypnea. At this point, the patient had serial blood work today, which demonstrated bicarbonate less than 5. The patient was on the medical floor at that time. White blood count increased to 34,000. ABG 6.97/13/140. Coagulation times unremarkable. Creatinine increasing to 1.55, lactic acid 3.5, minimal transaminitis with AST 52, ALT 62 with normal ammonia and normal alkaline phosphatase. Urine with 6 to 10 white blood cells, but there was 2+ ketones and 2+ glucose. I am consulted. The patient physically moved to the ICU and rapid workup has been underway. PAST MEDICAL HISTORY: Diabetes, hysterectomy, and possible kidney disease. MEDICATIONS: Medication list per the chart record. ALLERGIES: NO KNOWN DRUG ALLERGIES. SOCIAL HISTORY: No smoking, no drinking, and no drugs. Good support system is with spouse reportedly and kids at bedside. FAMILY HISTORY: Noncontributory. REVIEW OF SYSTEMS: Cannot get, as she is low in energy and not maintaining conversation. PHYSICAL EXAMINATION: VITAL SIGNS: Currently afebrile, vital signs reviewed per the chart record. Respiratory rate in 20s. GENERAL: She looks bad, very sick, she barely has energy to speak. HEENT: Normocephalic and atraumatic. NECK: Supple. Throat midline. LUNGS: Bilateral air entry, mostly clear. CARDIOVASCULAR: S1, S2. No murmurs, rubs, or gallops. ABDOMEN: Mostly soft with no surgical tenderness, no rebound, mild guarding, mildly distended, but still soft. EXTREMITIES: No clubbing, no cyanosis, and no edema. INTEGUMENT: No rash. No purpura. LABORATORY DATA: Potassium 5.2, bicarbonate less than 5, BUN 21, creatinine 1.33 earlier, increased to 1.55. Other important labs include lactic acid was 3.5. IMPRESSION AND PLAN: 1. Primary severe metabolic acidosis. 2. Acute respiratory acidosis, failure to compensate for severe metabolic issues. 3. Lactic acidosis. 4. Ketoacidosis, possibly the bigger factor, as we are not finding any other disastrous acute phenomenon. 5. Admitted with colitis. 6. Severe hyperglycemia, diabetes. 7. Acute kidney injury, evolving. 8. Malaise. The patient is critically ill. Acute workup is being done in the hospital rather than in the emergency room. For this reason, there was extra dedicated time to get the results and confirmation of clinical findings. Repeat abdominal CT, which in the interim showed no acute perforation, no significant changes except for the colitis. Cover with insulin IV bolus and then insulin drip. DKA protocol, so we eventually may start dextrose when sugar is below 200. Follow up the potassium. Repeat lipase level. Antibiotics will continue and we will make sure there is no diarrhea. For now, vancomycin, Flagyl, and Zosyn. The patient remains critically ill. The patient is close to intubation, but repeat blood gas showed some improvement of the acidosis, so we will give her a little bit more time prior to consider intubation. In summary, treat for the underlying sepsis and find other hidden diagnosis, but for now, this may be an additional DKA on colitis. We will follow along closely. Greater than 80 minutes in direct care and coordination on this date, multiple evaluations and multiple coordination with care providers and in discussion with family. MD JEAN PIERRE Berumen/MAYELIN /[id number]
[2019-09-20] VITALS (26 sets, daily range): BP systolic 96–134; BP diastolic 36–55
[2019-09-20] MEDS: DEXTROSE 5%/0.45% SOD CHL 1,000 ML IV SCH ×4 (00:38→22:00)
[2019-09-20] MEDS: ALBUTEROL SULF 0.083% NEB SOLN 3 ML NEB NEB SCH ×6 (02:44→23:00)
--- NOTE | 2019-09-20 04:12 | NUR ---
Cleaned for mod mucousy green stool.
[2019-09-20] MEDS: CEFEPIME 2 GM/NS 0.9% 100 ML 100 ML IV SCH ×2 (04:53→17:00)
[2019-09-20 05:24] LABS: BASOPHILS # (AUTO) 0.1 (0.0-0.1); BASOPHILS % 0.3 % (0.0-1.0); HEMATOCRIT 34.1 % (34.2-44.1); HEMOGLOBIN 10.7 g/dL (12.0-16.0); LYMPHOCYTES % 5.1 % (18.0-39.1); MEAN CORPUSCULAR HEMOGLOBIN 28.1 pg (28-32); MEAN CORPUSCULAR HGB CONC 31.4 g/dL (31-35); MEAN CORPUSCULAR VOLUME 89.5 fL (81-99); MONOCYTES # (AUTO) 1.9 (0.2-0.8); NEUTROPHILS # (AUTO) 15.8 (2.1-6.9); NEUTROPHILS % 81.3 % (38.7-80.0); PLATELET COUNT 379 x10e3/uL (140-360); RED BLOOD COUNT 3.81 x10e6/uL (3.6-5.1); RED CELL DISTRIBUTION WIDTH 15.6 % (11.7-14.4)
--- NOTE | 2019-09-20 05:30 | NUR ---
Cleaned for mod mucousy dark green stool.
[2019-09-20] MEDS: METRONIDAZOLE 500MG/NS 100ML 100 ML IV SCH ×3 (06:00→21:51)
[2019-09-20 06:02] LABS: ANION GAP 18.3 mmol/L (8-16); CALCIUM 7.5 mg/dL (8.4-10.2); CREATININE, SERUM 1.08 mg/dL (0.57-1.11); POTASSIUM 3.3 mmol/L (3.5-5.1)
--- NOTE | 2019-09-20 06:03 | Diagnostic Imaging Report ---
EXAMINATION: CHEST SINGLE (PORTABLE) COMPARISON: Chest x-ray 09/19/2019 INDICATION: Shortness of breath, weakness ^screening ^[id number] ^[id number] DISCUSSION: Frontal view of the chest obtained at 0533 hours. HEART AND MEDIASTINUM: Lung volumes are low. This accentuates the cardiac contours. LINES: Enteric tube extends past the diaphragm. LUNGS: Low lung volumes and bibasilar atelectasis. No pneumonia or pulmonary edema. PLEURA: No pleural effusion or pneumothorax. BONES AND SOFT TISSUES: No focal osseous lesion. The soft tissues are normal. IMPRESSION: Low lung volumes and bibasilar atelectasis. Signed by: Dr. Marci Hidalgo MD on 09/20/2019 6:01 AM
[2019-09-20] MEDS: PANTOPRAZOLE 40 MG 10ML VIAL IV SCH ×2 (07:30→21:51)
[2019-09-20] MEDS ORDERED: POTASSIUM CHLORIDE 20MEQ/100ML 200 ML IV ONE (10:30)
[2019-09-20] MEDS ORDERED: LEVOTHYROXINE SODIUM 100 MCG/VIAL IV ONE (12:00)
[2019-09-20] MEDS: ACETAMINOPHEN 325 MG TAB PO PRN (12:09)
[2019-09-20] MEDS ORDERED: SODIUM CHLORIDE 0.9% 250ML 250 ML IV ONE (12:30)
--- NOTE | 2019-09-20 13:43 | Progress Note ---
DATE: 09/20/2019 Internal Medicine Progress Note. SUBJECTIVE: The patient is doing much better today. She vomited only one time, but she is much more alert. PHYSICAL EXAMINATION: VITAL SIGNS: Blood pressure 129/51, temperature 98.2, heart rate 84 per minute, respiratory rate 16 per minute, oxygen saturation 99%. HEART: Showed regular rhythm. Normal S1, S2 sound. LUNGS: Clear bilaterally. ABDOMEN: Soft and nontender. No distention. No visceromegaly. EXTREMITIES: Show no edema. LABORATORY DATA: On the BMP; sodium of 149, potassium 3.3, chloride 120, CO2 of 14, BUN 14, creatinine 1.08, glucose 254. CBC, white blood count 19.3, hemoglobin 10.7, hematocrit 34.1, and platelet count 369,000 PT 14.5, INR 1.10, PTT 28.5. AST 52, ALT 62, total bilirubin 0.2, and alkaline phosphatase 94. IMPRESSION: 1. Sepsis, most secondary to colitis. 2. Colitis. 3. Diabetic ketoacidosis. 4. Acute renal failure. 5. Hypokalemia. 6. Hypernatremia. 7. Gastroesophageal reflux disease. PLAN OF TREATMENT: Continue insulin drip. Continue IV fluids. Continue metronidazole. Continue cefepime. Continue Zofran 4 mg IV q.4 hours, cefepime 2 g IV twice a day, metronidazole 500 g IV q.8 hours. Continue Tylenol 650 mg q.4 hours. Continue D5 normal saline at 150 mL an hour, D50 push as needed for hypoglycemia. DKA protocol is in place the blood sugar. Dr. Karl Crawford, Gastroenterology on the case. The patient had an NG tube to suction. Also, Dr. Matt Hdz, surgeon saw the patient. There is no evidence of any surgical abdomen. Abdomen CT showed colitis, but no perforation. Dr. Spencer will be consulted from Infectious Disease point of view. The patient is slowly getting better. The blood count is lower than what it was before, it went down from 32,000 to , so we are going to replace the potassium today. We are going to recheck the BMP, magnesium level, CBC tomorrow also. Clinically, the patient is improving. FINAL DIAGNOSIS: Metabolic acidosis secondary to DKA and sepsis. Lactic acid is lower at 1.1 today. The patient is in intensive care unit. Book Jacket Cover Machine Operator report has been reviewed also with the blood work and blood culture, which are negative. Urine culture showed contaminant also. The case discussed with the patient and son at the bedside. MD MARCELL Pena/MAYELIN /[id number]
[2019-09-20 16:02] LABS: LYMPHOCYTES % (MANUAL) 3 % (19-48); MONOCYTES % (MANUAL) 14 % (3.4-9.0); NEUTROPHILS % (MANUAL) 83 % (40-74)
[2019-09-20 16:03] LABS: PLATELET ESTIMATE ADEQUATE; PLATELET MORPHOLOGY COMMENT NORMAL; RBC MORPHOLOGY COMMENT NORMAL
--- NOTE | 2019-09-20 16:12 | NUR ---
Pulmonary and Critical Care Medicine DATE 09/20/2019 SUBJECTIVE: patient with NGT in, some output more awake, feeling better. talking insulin drip 3 / hr UOP flatus(+), possible BM IVF 50/hr CXR mild atelectasis REVIEW OF SYSTEMS: No headaches, no rash PHYSICAL EXAMINATION: VITAL SIGNS: vital signs reviewed per the chart record. GENERAL: Pale, breathing comfortably HEENT: Normocephalic and atraumatic. NECK: Supple. Throat midline. LUNGS: Bilateral air entry, mostly clear. CARDIOVASCULAR: S1, S2. No murmurs, rubs, or gallops. ABDOMEN: Softer, nontender, no rebound EXTREMITIES: No clubbing, no cyanosis, no edema. INTEGUMENT: No rash. No purpura. LABORATORY DATA: k 3.3, cr 1.08, hco3 14. wbc 19, hct 34, plt 379 IMPRESSION AND PLAN: 1. Primary severe metabolic acidosis. Apparent DKA, first time DKA onset. 2. Acute respiratory failure, relatively hypercapneic. not requiring intubation. 3. Lactic acidosis mild. 4. Ketoacidosis, possibly the bigger factor, as we are not finding any other disastrous acute phenomenon. 5. Admitted with colitis. 6. diabetes. 7. Acute kidney injury, better 8. low potassium Continue insulin IV insulin drip. --Additional dextrose loading Electrolyte replacement Empiric abx vancomycin, Flagyl, and Zosyn. dvt ppx escalate, no emergent operations apparent We will follow along closely. Thank you Dr Crawford and Dr Kwong
[2019-09-20] MEDS: ENOXAPARIN SOD INJ 40 MG/0.4 ML SYR SC SCH (17:09)
[2019-09-20 18:20] LABS: ANION GAP 22.8 mmol/L (8-16); BLOOD UREA NITROGEN 8 mg/dL (7-26); BUN/CREATININE RATIO 9 (6-25); CALCIUM 8.1 mg/dL (8.4-10.2); CARBON DIOXIDE 11 mmol/L (22-29); CHLORIDE 123 mmol/L (98-107); EST GLOMERULAR FILTRATION RATE > 60 ML/MIN (60-); GLUCOSE 253 mg/dL (74-118); POTASSIUM 3.8 mmol/L (3.5-5.1); SODIUM 153 mmol/L (136-145)
--- NOTE | 2019-09-20 18:45 | NUR ---
Report received. Assumed care. Assessment done. See interventions. IVs: D5 1/2NS @ 130ml/hr & Insulin @ 3 units/hr. 2L NC with good sats.
--- NOTE | 2019-09-20 19:30 | NUR ---
Cleaned for mod loose dark green stool.
[2019-09-20] MEDS: ONDANSETRON HCL INJ 2MG/ML 2ML 2 MG/ML VIAL IV PRN (20:20)
--- NOTE | 2019-09-20 23:11 | NUR ---
Cleaned for large amt mucousy loose dark green stool.
--- NOTE | 2019-09-20 23:19 | NUR ---
c/o accessive diarrhea and abd pain. Call to Dr. Bruno Crawford. Awaiting call back. Dr. Crawford called back shortly after above. Orders given.
[2019-09-20] MEDS ORDERED: DICYCLOMINE HCL 10 MG CAP ONE (23:29)
[2019-09-20] MEDS: DICYCLOMINE HCL 20 MG TAB PO SCH (23:30)
--- NOTE | 2019-09-20 23:30 | NUR ---
Bentyl given per NGT.
[2019-09-21] VITALS (26 sets, daily range): BP systolic 88–158; BP diastolic 45–73
--- NOTE | 2019-09-21 00:06 | NUR ---
Resting quietly at this time.
--- NOTE | 2019-09-21 01:30 | NUR ---
Dr. Bruno Crawford here. Spoke with pt and orders given. OK for few ice chips.
--- NOTE | 2019-09-21 01:39 | NUR ---
Medicated with Lomotil for diarrhea.
[2019-09-21] MEDS ORDERED: DIPHENOXYLATE/ATROPINE TAB NG ONE (01:45)
[2019-09-21] MEDS: ALBUTEROL SULF 0.083% NEB SOLN 3 ML NEB NEB SCH ×6 (03:00→23:00)
[2019-09-21] MEDS: ONDANSETRON HCL INJ 2MG/ML 2ML 2 MG/ML VIAL IV PRN ×2 (03:40→22:51)
[2019-09-21] MEDS: CEFEPIME 2 GM/NS 0.9% 100 ML 100 ML IV SCH ×2 (03:52→15:22)
[2019-09-21 05:15] LABS: BASOPHILS % 0.3 % (0.0-1.0); HEMATOCRIT 32.4 % (34.2-44.1); HEMOGLOBIN 10.7 g/dL (12.0-16.0); LYMPHOCYTES # (AUTO) 1.5 (1.0-3.2); LYMPHOCYTES % 9.7 % (18.0-39.1); MEAN CORPUSCULAR HEMOGLOBIN 28.2 pg (28-32); MEAN CORPUSCULAR VOLUME 85.3 fL (81-99); MONOCYTES # (AUTO) 1.3 (0.2-0.8); MONOCYTES % 8.3 % (4.4-11.3); NEUTROPHILS # (AUTO) 12.3 (2.1-6.9); NEUTROPHILS % 80.8 % (38.7-80.0); PLATELET COUNT 336 x10e3/uL (140-360); RED CELL DISTRIBUTION WIDTH 16.4 % (11.7-14.4)
[2019-09-21] MEDS: DICYCLOMINE HCL 20 MG TAB PO SCH ×3 (05:36→21:15)
[2019-09-21] MEDS: METRONIDAZOLE 500MG/NS 100ML 100 ML IV SCH ×3 (05:36→21:15)
[2019-09-21 05:38] LABS: ANION GAP 13.3 mmol/L (8-16); BLOOD UREA NITROGEN 6 mg/dL (7-26); BUN/CREATININE RATIO 8 (6-25); CALCIUM 8.3 mg/dL (8.4-10.2); CARBON DIOXIDE 19 mmol/L (22-29); CHLORIDE 123 mmol/L (98-107); CREATININE, SERUM 0.78 mg/dL (0.57-1.11); EST GLOMERULAR FILTRATION RATE > 60 ML/MIN (60-); GLUCOSE 196 mg/dL (74-118); POTASSIUM 3.3 mmol/L (3.5-5.1); SODIUM 152 mmol/L (136-145)
[2019-09-21] MEDS: DEXTROSE 5%/0.45% SOD CHL 1,000 ML IV SCH ×2 (05:58→13:10)
[2019-09-21] MEDS ORDERED: POTASSIUM CHLORIDE 20MEQ/100ML 100 ML IV ONE (07:15)
--- NOTE | 2019-09-21 07:16 | NUR ---
Call to Dr. Crawford. Reported K+ 3.3. Orders given for KCL 20 mEq IV.
[2019-09-21] MEDS: PANTOPRAZOLE 40 MG 10ML VIAL IV SCH ×2 (08:48→20:06)
[2019-09-21] MEDS: LEVOTHYROXINE SODIUM 100 MCG/VIAL IV SCH (08:48)
--- NOTE | 2019-09-21 11:40 | NUR ---
IN ICU ON INSULIN DRIP NG TUBE NPO IV ABX X 2
[2019-09-21] MEDS: SOD CHL IV SCH (15:22)
[2019-09-21] MEDS: POTASSIUM CHLORIDE IV SCH (15:22)
[2019-09-21] MEDS: DEXTROSE IV SCH (15:22)
[2019-09-21] MEDS: ENOXAPARIN SOD INJ 40 MG/0.4 ML SYR SC SCH (17:19)
[2019-09-22] VITALS (26 sets, daily range): BP systolic 82–156; BP diastolic 43–100
[2019-09-22] MEDS: SOD CHL IV SCH ×4 (01:06→23:24)
[2019-09-22] MEDS: POTASSIUM CHLORIDE IV SCH ×4 (01:06→23:24)
[2019-09-22] MEDS: DEXTROSE IV SCH ×4 (01:06→23:24)
--- NOTE | 2019-09-22 01:12 | NUR ---
Pulmonary and Critical Care Medicine DATE 09/21/2019 SUBJECTIVE: insulin 2/hr iv drip glucose in 100-200s' increased energy, but more nausea today BM yesterday REVIEW OF SYSTEMS: No headaches, no rash PHYSICAL EXAMINATION: VITAL SIGNS: vital signs reviewed per the chart record. GENERAL: NAD, AO x3 , looks weak HEENT: Normocephalic and atraumatic. NECK: Supple. Throat midline. LUNGS: Bilateral air entry, mostly clear. CARDIOVASCULAR: S1, S2. No murmurs, rubs, or gallops. ABDOMEN: Softer, nontender, no rebound EXTREMITIES: No clubbing, no cyanosis, no edema. INTEGUMENT: No rash. No purpura. LABORATORY DATA: k 3.3, cr 0.76, wbc 15, hct 32 IMPRESSION AND PLAN: 1. Primary severe metabolic acidosis. Apparent DKA, first time DKA onset. 2. Lactic acidosis mild, resolved. 3. Admitted with colitis. 4. diabetes. 5. Acute kidney injury, better 6. low potassium Continue insulin IV insulin drip per endocrinology and until patient with dependable calorie source --Additional dextrose loading Empiric abx vancomycin, Flagyl, and Zosyn. De-escalate vancomycin DVT ppx ice chips, escalate diet when GI/surgery ok We will follow along closely. Thank you Dr Crawford and Dr Kwong
[2019-09-22] MEDS: ALBUTEROL SULF 0.083% NEB SOLN 3 ML NEB NEB SCH ×5 (03:00→23:40)
[2019-09-22] MEDS: ONDANSETRON HCL INJ 2MG/ML 2ML 2 MG/ML VIAL IV PRN ×2 (03:34→21:17)
[2019-09-22] MEDS: CEFEPIME 2 GM/NS 0.9% 100 ML 100 ML IV SCH ×2 (04:17→16:25)
[2019-09-22 04:34] LABS: HEMOGLOBIN 10.2 g/dL (12.0-16.0); MEAN CORPUSCULAR HEMOGLOBIN 27.9 pg (28-32); MEAN CORPUSCULAR HGB CONC 32.9 g/dL (31-35); MEAN CORPUSCULAR VOLUME 84.7 fL (81-99); RED BLOOD COUNT 3.66 x10e6/uL (3.6-5.1); RED CELL DISTRIBUTION WIDTH 16.8 % (11.7-14.4)
[2019-09-22 04:35] LABS: BASOPHILS # (AUTO) 0.1 (0.0-0.1); BASOPHILS % 0.5 % (0.0-1.0); EOSINOPHILS % 0.1 % (0.0-6.0); LYMPHOCYTES # (AUTO) 2.3 (1.0-3.2); LYMPHOCYTES % 19.6 % (18.0-39.1); MONOCYTES # (AUTO) 1.3 (0.2-0.8); MONOCYTES % 11.3 % (4.4-11.3); NEUTROPHILS % 67.7 % (38.7-80.0); PLATELET COUNT 311 x10e3/uL (140-360)
[2019-09-22 04:57] LABS: ANION GAP 12.7 mmol/L (8-16); BLOOD UREA NITROGEN 5 mg/dL (7-26); BUN/CREATININE RATIO 8 (6-25); CALCIUM 8.4 mg/dL (8.4-10.2); CARBON DIOXIDE 20 mmol/L (22-29); CHLORIDE 118 mmol/L (98-107); CREATININE, SERUM 0.64 mg/dL (0.57-1.11); EST GLOMERULAR FILTRATION RATE > 60 ML/MIN (60-); GLUCOSE 153 mg/dL (74-118); POTASSIUM 3.7 mmol/L (3.5-5.1); SODIUM 147 mmol/L (136-145)
[2019-09-22] MEDS: SUCRALFATE 1 GM/10 ML SUSP NG SCH ×3 (05:56→17:16)
[2019-09-22] MEDS: DICYCLOMINE HCL 20 MG TAB PO SCH ×3 (05:56→21:17)
[2019-09-22] MEDS: METRONIDAZOLE 500MG/NS 100ML 100 ML IV SCH ×3 (05:56→21:17)
[2019-09-22] MEDS: PANTOPRAZOLE 40 MG 10ML VIAL IV SCH ×2 (08:23→21:14)
[2019-09-22] MEDS: LEVOTHYROXINE SODIUM 100 MCG/VIAL IV SCH (08:23)
[2019-09-22] MEDS ORDERED: SODIUM CHLORIDE 0.9% 1000ML 1,000 ML IV ONE (11:45)
--- NOTE | 2019-09-22 13:10 | NUR ---
Nutrition Intervention Note RD Recommendation(s) for Physician: - As GI status allows, ADAT to goal of GI Soft - Recommend Ensure Clear TID when diet advanced - Please check Mg and Phos with BMP, replace low lytes as needed - If unable to advance diet within 24-48 hrs, consider Parenteral Nutrition and consult RD for recommendations Plan of Care: RD following, monitoring for tolerance and adequacy Nutrition reason for involvement: Diet- NPO/CL x day 5 RD Assessment 09/22: 59 YOF admitted for colitis and sepsis, seen today per diet of NPO/Cl x 5 days. Pt reports onset of symptoms the morning of the day of admit. She reports prior that am eating well and no GI distress. Pt reports UBW fo 172-178#, no wt loss noted. Pt denies any GI distress currently, continues with NGT in place to LIWS, greenish output noted at time of visit. Pt reports wanting to eat now, awaiting GI or surgery to advance diet per MD notes. All questions and concerns addressed at time of visit. Pt discussed during am rounds. Will continue to monitor. Principal Problems/Diagnoses: colitis, sepsis PMH: DM, HTN, hypothyroidism GI: LBM 09/22 Skin: intact Labs: 09/22: Na 147, K 3.7, BUN 5, Cr 0.64, Gluc 153, POC Gluc 159-184 Meds: carafate, synthroid, protonix, bentyl, abx, zofran Ht: 58 in Wt: 174.56 lb BMI: 36.5 kg/m2 IBW: 95 lb Malnutrition Evaluation (09/22/19) The patient does not meet criteria for a specified degree of malnutrition at this time. Will re-evaluate at follow-up as appropriate. PO intake: <50% of estimated energy requirements for >5 days Weight loss: no wt loss Fat loss: none observed Muscle loss: none observed Supporting Evidence: Fluid accumulation: none observed Functional Status: not assessed Nutrition Prescription (Diet Order): NPO Estimated Nutritional Needs: 950-1080 calories/day (22-25 kcal/kg IBW) 65-86 g protein/day (1.5-2 g pro/kg IBW) Diet Adequacy: Not meeting calorie needs, Not meeting protein needs Diet Tolerance: Diet Education Needs Assessment: Diet education not indicated, patient on temporary/transition diet. Nutrition Care Level: High Nutrition Diagnosis: Inadequate energy and protein intake related to current medical conditions and NGT to LIWS as evidenced by pt remains NPO and not meeting needs. Goal: Patient will meet 75-100% of estimated needs by follow up Progress: N/A Interventions: -fluid, fiber modified diet, Commercial beverage, Recommended Modifications, Collaboration with other providers Monitoring/Evaluation: -Total energy intake, Total protein intake, Modified diet, Liquid supplement, Weight change Signed: Mikayla Kurtz RD, LD, [facility]
[2019-09-22] MEDS: BISMUTH SUBSALICYLATE 262 MG/15 ML 8OZ BTL PO PRN (16:33)
[2019-09-22] MEDS: ENOXAPARIN SOD INJ 40 MG/0.4 ML SYR SC SCH (16:33)
[2019-09-22] MEDS: INSULIN GLARGINE 100 UNITS/ML VIAL SQ SCH (21:14)
[2019-09-22] MEDS: ACETAMINOPHEN 325 MG TAB PO PRN (22:00)
[2019-09-23] VITALS (13 sets, daily range): BP systolic 108–149; BP diastolic 60–83
[2019-09-23] MEDS: SUCRALFATE 1 GM/10 ML SUSP NG SCH ×5 (00:17→23:45)
[2019-09-23] MEDS: ALBUTEROL SULF 0.083% NEB SOLN 3 ML NEB NEB SCH ×3 (03:30→11:00)
--- NOTE | 2019-09-23 03:49 | NUR ---
Pulmonary and Critical Care Medicine DATE 09/22/2019 SUBJECTIVE: insulin 3/hr iv drip IVF ongoing at 130/hr NGT clamped only 150 cc / 12 hrs last night by NGT REVIEW OF SYSTEMS: No headaches, no rash PHYSICAL EXAMINATION: VITAL SIGNS: vital signs reviewed per the chart record. GENERAL: NAD, AO x3 , looks stronger, sat up HEENT: Normocephalic and atraumatic. NECK: Supple. Throat midline. LUNGS: Bilateral air entry, mostly clear. CARDIOVASCULAR: S1, S2. No murmurs, rubs, or gallops. ABDOMEN: Softer, nontender, no rebound EXTREMITIES: No clubbing, no cyanosis, no edema. INTEGUMENT: No rash. No purpura. LABORATORY DATA: k 3.7, cr 0.64. wbc 12, hct 341 IMPRESSION AND PLAN: 1. Primary severe metabolic acidosis. Apparent DKA, first time DKA onset. 2. Lactic acidosis mild, resolved. 3. Admitted with colitis. 4. diabetes. 5. Acute kidney injury, better 6. low potassium Continue insulin IV insulin drip per endocrinology and until patient with dependable calorie source --Additional dextrose loading NGT in place per surgeon, clamped. --NGT per surgeon --diet per surgeon Empiric abx Flagyl, and Zosyn. DVT ppx We will follow along closely. slow mobilization Thank you Dr Crawford and Dr Kwong
[2019-09-23] MEDS: CEFEPIME 2 GM/NS 0.9% 100 ML 100 ML IV SCH ×2 (04:02→16:37)
[2019-09-23] MEDS: ACETAMINOPHEN 325 MG TAB PO PRN (04:03)
[2019-09-23 05:05] LABS: BASOPHILS # (AUTO) 0.1 (0.0-0.1); BASOPHILS % 0.6 % (0.0-1.0); EOSINOPHILS # (AUTO) 0.1 (0.0-0.4); EOSINOPHILS % 1.5 % (0.0-6.0); HEMATOCRIT 29.3 % (34.2-44.1); HEMOGLOBIN 9.8 g/dL (12.0-16.0); LYMPHOCYTES # (AUTO) 2.3 (1.0-3.2); LYMPHOCYTES % 25.9 % (18.0-39.1); MEAN CORPUSCULAR HEMOGLOBIN 28.5 pg (28-32); MEAN CORPUSCULAR HGB CONC 33.4 g/dL (31-35); MEAN CORPUSCULAR VOLUME 85.2 fL (81-99); MONOCYTES # (AUTO) 1.1 (0.2-0.8); MONOCYTES % 12.4 % (4.4-11.3); NEUTROPHILS # (AUTO) 5.2 (2.1-6.9); NEUTROPHILS % 58.5 % (38.7-80.0); PLATELET COUNT 244 x10e3/uL (140-360); RED BLOOD COUNT 3.44 x10e6/uL (3.6-5.1); RED CELL DISTRIBUTION WIDTH 16.7 % (11.7-14.4)
[2019-09-23 05:27] LABS: ANION GAP 10.9 mmol/L (8-16); BLOOD UREA NITROGEN < 5 mg/dL (7-26); BUN/CREATININE RATIO 8 (6-25); CALCIUM 8.2 mg/dL (8.4-10.2); CARBON DIOXIDE 24 mmol/L (22-29); CHLORIDE 107 mmol/L (98-107); CREATININE, SERUM 0.64 mg/dL (0.57-1.11); EST GLOMERULAR FILTRATION RATE > 60 ML/MIN (60-); GLUCOSE 144 mg/dL (74-118); POTASSIUM 3.9 mmol/L (3.5-5.1); SODIUM 138 mmol/L (136-145)
[2019-09-23] MEDS: METRONIDAZOLE 500MG/NS 100ML 100 ML IV SCH ×3 (05:40→21:30)
[2019-09-23] MEDS: DICYCLOMINE HCL 20 MG TAB PO SCH ×3 (06:40→21:30)
[2019-09-23] MEDS: DEXTROSE IV SCH ×3 (07:20→21:31)
[2019-09-23] MEDS: POTASSIUM CHLORIDE IV SCH ×3 (07:20→21:31)
[2019-09-23] MEDS: SOD CHL IV SCH ×3 (07:20→21:31)
[2019-09-23] MEDS: PANTOPRAZOLE 40 MG 10ML VIAL IV SCH ×2 (10:53→20:43)
[2019-09-23] MEDS: LEVOTHYROXINE SODIUM 100 MCG/VIAL IV SCH (10:54)
--- NOTE | 2019-09-23 12:06 | NUR ---
Pulmonary and Critical Care Medicine DATE 09/23/2019 SUBJECTIVE: IVF D51/2 NS at 130/hr insulin 2/hr iv received SQ insulin dose NGT+, starting clears diet REVIEW OF SYSTEMS: No headaches, no rash PHYSICAL EXAMINATION: VITAL SIGNS: vital signs reviewed per the chart record. GENERAL: NAD, AO x3 , looks stronger, sat up HEENT: Normocephalic and atraumatic. NECK: Supple. Throat midline. LUNGS: Bilateral air entry, mostly clear. CARDIOVASCULAR: S1, S2. No murmurs, rubs, or gallops. ABDOMEN: Softer, nontender, no rebound EXTREMITIES: No clubbing, no cyanosis, no edema. INTEGUMENT: No rash. No purpura. LABORATORY DATA: k 3.9. IMPRESSION AND PLAN: 1. Primary severe metabolic acidosis. Apparent DKA, first time DKA onset. 2. Lactic acidosis mild, resolved. 3. Admitted with colitis. Functional ileus 4. diabetes. 5. Acute kidney injury, better 6. low potassium Continue insulin IV insulin drip per endocrinology --Additional dextrose loading --Started SQ insulin, consider stopping IV drip soon NGT in place per surgeon, clamped. --NGT per surgeon Empiric abx Flagyl, and Zosyn. DVT ppx We will follow along closely. mobilization change nebs to prn d/c mariusz Thank you Dr Crawford and Dr Kwong
[2019-09-23] MEDS ORDERED: ALBUTEROL SULF 0.083% NEB SOLN 3 ML NEB NEB PRN (12:15)
[2019-09-23] MEDS: ENOXAPARIN SOD INJ 40 MG/0.4 ML SYR SC SCH (16:37)
--- NOTE | 2019-09-23 18:53 | NUR ---
Yas DONIS'd at [id number]
--- NOTE | 2019-09-23 19:00 | NUR ---
Bedside report received from Gumaro Espinoza RN. Pt sitting up on toilet at this time, is with her.
--- NOTE | 2019-09-23 19:15 | NUR ---
Pt returned to bed from toilet. Monitor and IV reconnected. Care plan reviewed with pt and her . Pt reports no pain or distress at this time. VSS to pt. Call light in reach of the pt. Bed in lowest and locked position.
--- NOTE | 2019-09-23 20:45 | NUR ---
Glory Espinoza RN (charge nurse) assisted the pt to the toilet at this time. Pt instructed to pull red call light string when she is ready to return to bed.
[2019-09-23] MEDS: INSULIN REGULAR, HUMAN 3ML VL 100 UNIT in SODIUM CHLORIDE 0.9% 99 ML IV SCH ×2 (21:34)
[2019-09-23] MEDS: INSULIN GLARGINE 100 UNITS/ML VIAL SQ SCH (21:35)
[2019-09-24] VITALS (7 sets, daily range): BP systolic 98–117; BP diastolic 47–84
--- NOTE | 2019-09-24 02:36 | NUR ---
Dr. Bruno Crawford present and assessing the pt. New orders received, refer to customs and border protection inspector as needed.
[2019-09-24] MEDS: LOPERAMIDE HCL 2 MG CAP PO PRN ×2 (04:06→06:18)
[2019-09-24] MEDS: CEFEPIME 2 GM/NS 0.9% 100 ML 100 ML IV SCH ×2 (04:15→16:00)
[2019-09-24 05:43] LABS: FERRITIN 46.46 ng/mL (4.63-204.00)
[2019-09-24] MEDS: METRONIDAZOLE 500MG/NS 100ML 100 ML IV SCH ×3 (06:08→22:12)
[2019-09-24] MEDS: SUCRALFATE 1 GM/10 ML SUSP NG SCH ×3 (06:08→18:42)
[2019-09-24] MEDS: DEXTROSE IV SCH ×2 (06:09→14:39)
[2019-09-24] MEDS: SOD CHL IV SCH ×2 (06:09→14:39)
[2019-09-24] MEDS: DICYCLOMINE HCL 20 MG TAB PO SCH ×3 (06:09→21:06)
[2019-09-24] MEDS: POTASSIUM CHLORIDE IV SCH ×3 (06:09→20:10)
--- NOTE | 2019-09-24 07:00 | NUR ---
Bedside report given to Mallory Harris RN. Pt reports no pain or discomfort at this time, no distress noted. Care plan reviewed.
[2019-09-24] MEDS: ONDANSETRON HCL INJ 2MG/ML 2ML 2 MG/ML VIAL IV PRN (07:04)
[2019-09-24] MEDS: LEVOTHYROXINE SODIUM 100 MCG/VIAL IV SCH (09:00)
[2019-09-24] MEDS: PANTOPRAZOLE 40 MG 10ML VIAL IV SCH ×2 (09:00→20:50)
[2019-09-24] MEDS: ENOXAPARIN SOD INJ 40 MG/0.4 ML SYR SC SCH (16:41)
[2019-09-24] MEDS: SODIUM CHLORIDE IV SCH (20:10)
[2019-09-24] MEDS: DEXTROSE 5% IV SCH (20:10)
--- NOTE | 2019-09-24 20:47 | NUR ---
Pulmonary and Critical Care Medicine DATE 09/24/2019 SUBJECTIVE: RA fio2 glucose mainly ok, but went as low as 60 feels better tolerating full liquids so far ivf 130/hr REVIEW OF SYSTEMS: No headaches, no rash PHYSICAL EXAMINATION: VITAL SIGNS: vital signs reviewed per the chart record. GENERAL: NAD, AO x3 HEENT: Normocephalic and atraumatic. NECK: Supple. Throat midline. LUNGS: Bilateral air entry, mostly clear. CARDIOVASCULAR: S1, S2. No murmurs, rubs, or gallops. ABDOMEN: Softer, nontender, no rebound EXTREMITIES: No clubbing, no cyanosis, no edema. INTEGUMENT: No rash. No purpura. LABORATORY DATA: no new updates IMPRESSION AND PLAN: 1. Primary severe metabolic acidosis. First time DKA onset. 2. Lactic acidosis mild, resolved. 3. Admitted with colitis. Functional ileus 4. Diabetes. 5. Acute kidney injury, better SQ insulin per endocrinology --Consider stopping IV drip soon NGT d/c Escalate PO diet as tolerated Empiric abx Flagyl, and Zosyn. DVT ppx We will follow along closely. mobilization Thank you Dr Crawford and Dr Kwong
[2019-09-24] MEDS: INSULIN GLARGINE 100 UNITS/ML VIAL SQ SCH (20:50)
--- NOTE | 2019-09-24 21:06 | NUR ---
reports given to Marianela GILL, patient moved to rm 199.
[2019-09-25] VITALS: BP 103/69
[2019-09-25 04:00] VITALS: BP 109/46
[2019-09-25] MEDS: SODIUM CHLORIDE IV SCH (04:00)
[2019-09-25] MEDS: POTASSIUM CHLORIDE IV SCH ×3 (04:00→20:43)
[2019-09-25] MEDS: DEXTROSE 5% IV SCH (04:00)
[2019-09-25] MEDS: INSULIN REGULAR, HUMAN 3ML VL 100 UNIT in SODIUM CHLORIDE 0.9% 99 ML IV SCH ×4 (04:00)
[2019-09-25] MEDS: CEFEPIME 2 GM/NS 0.9% 100 ML 100 ML IV SCH ×2 (05:00→17:09)
[2019-09-25] MEDS: ACETAMINOPHEN 325 MG TAB PO PRN ×3 (05:30→06:08)
[2019-09-25] MEDS: SUCRALFATE 1 GM/10 ML SUSP NG SCH ×4 (05:30→17:24)
[2019-09-25] MEDS: DICYCLOMINE HCL 20 MG TAB PO SCH ×3 (06:08→20:36)
[2019-09-25] MEDS: METRONIDAZOLE 500MG/NS 100ML 100 ML IV SCH ×3 (06:09→20:36)
[2019-09-25 07:15] VITALS: BP 103/53
[2019-09-25 07:16] VITALS: BP 103/53
[2019-09-25] MEDS: LEVOTHYROXINE SODIUM 100 MCG/VIAL IV SCH (08:54)
[2019-09-25] MEDS: PANTOPRAZOLE 40 MG 10ML VIAL IV SCH ×2 (08:54→20:36)
[2019-09-25] MEDS: SOD CHL IV SCH ×2 (11:03→20:43)
[2019-09-25] MEDS: DEXTROSE IV SCH ×2 (11:03→20:43)
--- NOTE | 2019-09-25 11:16 | NUR ---
Pulmonary and Critical Care Medicine DATE 09/25/2019 SUBJECTIVE: tolerating full liquids ivf 130/hr insulin 3/ hr iv drip RA , sat 100% REVIEW OF SYSTEMS: No headaches, no rash PHYSICAL EXAMINATION: VITAL SIGNS: vital signs reviewed per the chart record. GENERAL: NAD, AO x3 HEENT: Normocephalic and atraumatic. NECK: Supple. Throat midline. LUNGS: Bilateral air entry, mostly clear. CARDIOVASCULAR: S1, S2. No murmurs, rubs, or gallops. ABDOMEN: Softer, nontender, no rebound EXTREMITIES: No clubbing, no cyanosis, no edema. INTEGUMENT: No rash. No purpura. LABORATORY DATA: no new updates IMPRESSION AND PLAN: 1. Primary severe metabolic acidosis. First time DKA onset. 2. Lactic acidosis mild, resolved. 3. Admitted with colitis. Functional ileus 4. Diabetes. 5. Acute kidney injury, better SQ insulin per endocrinology -- IV insulin drip for now Escalate PO diet as tolerated Empiric abx Flagyl, and Zosyn. DVT ppx We will follow along closely. mobilization can leave the ICU Thank you Dr Crawford and Dr Kwong
[2019-09-25 12:03] VITALS: BP 122/56
[2019-09-25] MEDS: DIPHENOXYLATE/ATROPINE TAB PO PRN (12:23)
--- NOTE | 2019-09-25 14:20 | NUR ---
dr dawson rounded. per , add humalog qith meals, also sliding scale. insulin drip currently at 3u/hr. adjust to 2u/hr now and taper down q2hrs until drip dc
--- NOTE | 2019-09-25 16:41 | NUR ---
Nutrition Reassessment Note RD Recommendation(s) for Physician: - Continue GI soft/diabetic diet Plan of Care: RD following, monitoring for tolerance and adequacy Nutrition reason for involvement: follow up RD Assessment 09/25: Pt was sleeping at time of visit. Pt was advanced to a GI soft/diabetic diet from a liquid diet last night. RN reports pt is tolerating diet. It is recorded that pt consumed 100% of dinner meal yesterday. Pt also has loose stools per RN. Will continue to monitor. 09/22: 59 YOF admitted for colitis and sepsis, seen today per diet of NPO/Cl x 5 days. Pt reports onset of symptoms the morning of the day of admit. She reports prior that am eating well and no GI distress. Pt reports UBW fo 172-178#, no wt loss noted. Pt denies any GI distress currently, continues with NGT in place to LIWS, greenish output noted at time of visit. Pt reports wanting to eat now, awaiting GI or surgery to advance diet per MD notes. All questions and concerns addressed at time of visit. Pt discussed during am rounds. Will continue to monitor. Principal Problems/Diagnoses: colitis, sepsis PMH: DM, HTN, hypothyroidism GI: LBM 09/25 Skin: intact Labs: 09/25: (last documented labs 09/23) Na 138, K 3.9, BUN <5 Cr 0.64, Glu 144 09/22: Na 147, K 3.7, BUN 5, Cr 0.64, Gluc 153, POC Gluc 159-184 Meds: levothyroxine, protonix, insulin, zofran, imodium Ht: 58 in Wt: 173 lbs (09/23) 174.56 lb (09/22) BMI: 36.2 kg/m2 IBW: 95 lb Malnutrition Evaluation (09/22/19) The patient does not meet criteria for a specified degree of malnutrition at this time. Will re-evaluate at follow-up as appropriate. PO intake: <50% of estimated energy requirements for >5 days Weight loss: no wt loss Fat loss: none observed Muscle loss: none observed Supporting Evidence: Fluid accumulation: none observed Functional Status: not assessed Nutrition Prescription (Diet Order): GI soft/diabetic diet Estimated Nutritional Needs: 950-1080 calories/day (22-25 kcal/kg IBW) 65-86 g protein/day (1.5-2 g pro/kg IBW) Diet Adequacy: Pt was started on a GI soft diet last night and it is recorded that pt consumed 100% of dinner meal yesterday. Diet Tolerance: Tolerating PO Diet Education Needs Assessment: Pt was sleeping at time of visit. RD is available for diet education as needed Nutrition Care Level: moderate Nutrition Diagnosis: Inadequate energy and protein intake related to current medical conditions and NGT to LIWS as evidenced by pt remains NPO and not meeting needs. (RESOLVED - pt is now on a a GI soft/diabetic diet) Goal: Patient will meet 75-100% of estimated needs by follow up Progress: Progressing Interventions: -fiber, carbohydrate modified diet, Collaboration with other providers Monitoring/Evaluation: -Total energy intake, Total protein intake, Modified diet, Weight change Signed: Agatha Diaz RD, LD
[2019-09-25] MEDS: INSULIN LISPRO 100 UNIT/1 ML 3ML VIAL SQ SCH ×3 (17:09→20:42)
[2019-09-25] MEDS: ENOXAPARIN SOD INJ 40 MG/0.4 ML SYR SC SCH (17:24)
[2019-09-25] MEDS: INSULIN GLARGINE 100 UNITS/ML VIAL SQ SCH (20:42)
[2019-09-25 21:00] VITALS: BP 120/65
[2019-09-26] VITALS (8 sets, daily range): BP systolic 94–128; BP diastolic 42–60
[2019-09-26] MEDS ORDERED: IRON SUCROSE 100 MG in SODIUM CHLORIDE 0.9% 100 ML 100 ML IV SCH ×2
[2019-09-26] MEDS: SUCRALFATE 1 GM/10 ML SUSP NG SCH ×4 (00:05→17:12)
[2019-09-26] MEDS: CEFEPIME 2 GM/NS 0.9% 100 ML 100 ML IV SCH ×2 (03:34→16:11)
[2019-09-26] MEDS: METRONIDAZOLE 500MG/NS 100ML 100 ML IV SCH ×3 (03:34→21:02)
[2019-09-26 05:18] LABS: BASOPHILS # (AUTO) 0.1 (0.0-0.1); BASOPHILS % 0.7 % (0.0-1.0); EOSINOPHILS # (AUTO) 0.4 (0.0-0.4); EOSINOPHILS % 6.1 % (0.0-6.0); HEMOGLOBIN 9.5 g/dL (12.0-16.0); LYMPHOCYTES # (AUTO) 2.1 (1.0-3.2); LYMPHOCYTES % 30.6 % (18.0-39.1); MEAN CORPUSCULAR HEMOGLOBIN 27.6 pg (28-32); MEAN CORPUSCULAR HGB CONC 31.7 g/dL (31-35); MEAN CORPUSCULAR VOLUME 87.2 fL (81-99); MONOCYTES # (AUTO) 0.9 (0.2-0.8); MONOCYTES % 12.6 % (4.4-11.3); NEUTROPHILS # (AUTO) 3.3 (2.1-6.9); NEUTROPHILS % 47.6 % (38.7-80.0); PLATELET COUNT 282 x10e3/uL (140-360); RED BLOOD COUNT 3.44 x10e6/uL (3.6-5.1); RED CELL DISTRIBUTION WIDTH 16.5 % (11.7-14.4)
[2019-09-26 05:46] LABS: BLOOD UREA NITROGEN 9 mg/dL (7-26); BUN/CREATININE RATIO 12 (6-25); CALCIUM 8.1 mg/dL (8.4-10.2); CARBON DIOXIDE 24 mmol/L (22-29); CHLORIDE 100 mmol/L (98-107); CREATININE, SERUM 0.77 mg/dL (0.57-1.11); EST GLOMERULAR FILTRATION RATE > 60 ML/MIN (60-); GLUCOSE 390 mg/dL (74-118); MAGNESIUM 1.6 MG/DL (1.3-2.1); SODIUM 131 mmol/L (136-145)
[2019-09-26] MEDS: DICYCLOMINE HCL 20 MG TAB PO SCH ×3 (06:35→21:02)
[2019-09-26] MEDS: INSULIN LISPRO 100 UNIT/1 ML 3ML VIAL SQ SCH ×8 (07:08→21:04)
[2019-09-26] MEDS: SOD CHL IV SCH (08:17)
[2019-09-26] MEDS: DEXTROSE IV SCH (08:17)
[2019-09-26] MEDS: POTASSIUM CHLORIDE IV SCH (08:17)
[2019-09-26] MEDS: LOPERAMIDE HCL 2 MG CAP PO PRN (08:41)
[2019-09-26] MEDS: DIPHENOXYLATE/ATROPINE TAB PO PRN (08:41)
[2019-09-26] MEDS: PANTOPRAZOLE 40 MG 10ML VIAL IV SCH ×2 (08:41→21:01)
[2019-09-26] MEDS: LEVOTHYROXINE SODIUM 100 MCG/VIAL IV SCH (08:41)
[2019-09-26] MEDS: IRON SUCROSE 100 MG in SODIUM CHLORIDE 0.9% 100 ML 100 ML IV SCH (08:56)
--- NOTE | 2019-09-26 13:28 | NUR ---
Pulmonary and Critical Care Medicine DATE 09/26/2019 SUBJECTIVE: increased glucose levels insulin off yesterday, stable anion gap IVF weaning off ? ate well REVIEW OF SYSTEMS: No headaches, no rash PHYSICAL EXAMINATION: VITAL SIGNS: vital signs reviewed per the chart record. GENERAL: NAD, AO x3 HEENT: Normocephalic and atraumatic. NECK: Supple. Throat midline. LUNGS: Bilateral air entry, mostly clear. CARDIOVASCULAR: S1, S2. No murmurs, rubs, or gallops. ABDOMEN: Softer, nontender, no rebound EXTREMITIES: No clubbing, no cyanosis, no edema. INTEGUMENT: No rash. No purpura. LABORATORY DATA: k 5.0, hco3 24, cr 0.77. wbc 7, hct 30, plt 282 IMPRESSION AND PLAN: 1. Primary severe metabolic acidosis. First time DKA onset. 2. Lactic acidosis mild, resolved. 3. Admitted with colitis. Functional ileus 4. Diabetes. 5. Acute kidney injury, better SQ insulin -- IV insulin drip dc for now. -- adjust insulin per endocrine expert -- prn labs, follow anion gap Escalate PO diet as tolerated Empiric abx Flagyl, and Zosyn. DVT ppx We will follow along closely. mobilization Thank you Dr Crawford and Dr Kwong
[2019-09-26] MEDS: BISMUTH SUBSALICYLATE 262 MG/15 ML 8OZ BTL PO PRN (15:48)
[2019-09-26] MEDS: ENOXAPARIN SOD INJ 40 MG/0.4 ML SYR SC SCH (16:18)
[2019-09-26] MEDS ORDERED: INSULIN GLARGINE 100 UNITS/ML VIAL SQ SCH (21:00)
[2019-09-27] VITALS (8 sets, daily range): BP systolic 107–132; BP diastolic 48–61
[2019-09-27] MEDS: SUCRALFATE 1 GM/10 ML SUSP NG SCH ×3 (00:02→11:24)
[2019-09-27] MEDS: CEFEPIME 2 GM/NS 0.9% 100 ML 100 ML IV SCH ×2 (03:40→15:20)
[2019-09-27] MEDS: DICYCLOMINE HCL 20 MG TAB PO SCH ×3 (06:04→20:10)
[2019-09-27] MEDS: METRONIDAZOLE 500MG/NS 100ML 100 ML IV SCH ×3 (06:04→20:10)
[2019-09-27] MEDS: INSULIN LISPRO 100 UNIT/1 ML 3ML VIAL SQ SCH ×7 (07:40→20:13)
[2019-09-27] MEDS: PANTOPRAZOLE 40 MG 10ML VIAL IV SCH (08:49)
[2019-09-27] MEDS: LEVOTHYROXINE SODIUM 100 MCG/VIAL IV SCH (08:49)
[2019-09-27] MEDS: IRON SUCROSE 100 MG in SODIUM CHLORIDE 0.9% 100 ML 100 ML IV SCH (08:50)
--- NOTE | 2019-09-27 12:53 | NUR ---
Pulmonary and Critical Care Medicine DATE 09/27/2019 SUBJECTIVE: increased glucose levels but usually 200's less labile than yesterday RA FIO2 out of bed tolerating diet REVIEW OF SYSTEMS: No headaches, no rash PHYSICAL EXAMINATION: VITAL SIGNS: vital signs reviewed per the chart record. GENERAL: NAD, AO x3 HEENT: Normocephalic and atraumatic. NECK: Supple. Throat midline. LUNGS: Bilateral air entry, mostly clear. CARDIOVASCULAR: S1, S2. No murmurs, rubs, or gallops. ABDOMEN: Softer, nontender, no rebound EXTREMITIES: No clubbing, no cyanosis, 1+ edema. INTEGUMENT: No rash. No purpura. LABORATORY DATA: no new updates IMPRESSION AND PLAN: 1. Primary severe metabolic acidosis. First time DKA onset. 2. Lactic acidosis mild, resolved. 3. Admitted with colitis. Functional ileus 4. Diabetes. Uncontrolled still 5. Acute kidney injury, better SQ insulin -- adjust SQ insulin per endocrine expert -- prn labs, follow anion gap Escalate PO diet as tolerated Empiric abx Flagyl, and Zosyn. DVT ppx We will follow along closely. mobilization Thank you Dr Crawford and Dr Kwong
[2019-09-27] MEDS ORDERED: PANTOPRAZOLE SOD 40 MG TABEC PO SCH (13:30)
--- NOTE | 2019-09-27 14:25 | NUR ---
Visit made by the Spiritual Care Department Pastoral Visitor, Macho Asher. PV provided pastoral presence, hospitality, and supportive listening. Pastoral Visitor informed pt/family of the scope of [employer] and availability. MEHRAN CHRIS Maintenance Repairman Spiritual Care Department O: [phone] Pager: [phone] ([phone] number calling from)
[2019-09-27] MEDS: ACETAMINOPHEN 325 MG TAB PO PRN (15:30)
[2019-09-27] MEDS: SUCRALFATE 1 GM/10 ML SUSP PO SCH ×2 (16:17→21:22)
[2019-09-27] MEDS: PANTOPRAZOLE SOD 40 MG TABEC PO SCH (20:10)
[2019-09-27] MEDS ORDERED: INSULIN GLARGINE 100 UNITS/ML VIAL SQ SCH (21:00)
--- NOTE | 2019-09-28 02:55 | NUR ---
PATIENT CALLED NURSE TO ROOM STATING SHE'S SWEATING AND FEELS HER BLOOD GLUCOSE IS LOW. NURSE CHECKED AND PATIENT'S BLOOD GLUCOSE IS 59. PROVIDED PATIENT WITH SANDWICH, PUDDING AND MILK TO DRINK. RECHECK OF BLOOD SUGAR NOW SHOWS BLOOD SUGAR ABOVE 280.
[2019-09-28] MEDS: CEFEPIME 2 GM/NS 0.9% 100 ML 100 ML IV SCH (04:05)
[2019-09-28 04:18] VITALS: BP 132/82
[2019-09-28] MEDS: METRONIDAZOLE 500MG/NS 100ML 100 ML IV SCH (05:08)
[2019-09-28] MEDS: DICYCLOMINE HCL 20 MG TAB PO SCH (05:08)
[2019-09-28] MEDS: SUCRALFATE 1 GM/10 ML SUSP PO SCH ×2 (05:08→11:30)
[2019-09-28] MEDS ORDERED: LEVOTHYROXINE SODIUM 75 MCG TAB PO SCH (06:00)
[2019-09-28 06:32] LABS: BASOPHILS % 0.5 % (0.0-1.0); EOSINOPHILS # (AUTO) 0.2 (0.0-0.4); EOSINOPHILS % 2.7 % (0.0-6.0); HEMATOCRIT 31.7 % (34.2-44.1); LYMPHOCYTES % 33.6 % (18.0-39.1); MEAN CORPUSCULAR HEMOGLOBIN 27.8 pg (28-32); MEAN CORPUSCULAR HGB CONC 31.5 g/dL (31-35); MEAN CORPUSCULAR VOLUME 88.1 fL (81-99); MONOCYTES # (AUTO) 0.9 (0.2-0.8); MONOCYTES % 15.2 % (4.4-11.3); NEUTROPHILS # (AUTO) 2.7 (2.1-6.9); PLATELET COUNT 304 x10e3/uL (140-360)
[2019-09-28 06:38] LABS: ANION GAP 14.6 mmol/L (8-16); BLOOD UREA NITROGEN 10 mg/dL (7-26); BUN/CREATININE RATIO 12 (6-25); CALCIUM 8.4 mg/dL (8.4-10.2); CARBON DIOXIDE 25 mmol/L (22-29); CHLORIDE 97 mmol/L (98-107); CREATININE, SERUM 0.83 mg/dL (0.57-1.11); EST GLOMERULAR FILTRATION RATE > 60 ML/MIN (60-); POTASSIUM 4.6 mmol/L (3.5-5.1); SODIUM 132 mmol/L (136-145)
[2019-09-28 06:44] LABS: GLUCOSE 485 mg/dL (74-118)
[2019-09-28 07:03] VITALS: BP 135/58
[2019-09-28] MEDS: INSULIN LISPRO 100 UNIT/1 ML 3ML VIAL SQ SCH ×4 (07:42→12:00)
--- NOTE | 2019-09-28 07:54 | NUR ---
Called Dr. Crawford's @[phone] made aware patient's accu check 431, and patient's glucose serum 485, I also informed MD I covered patient with sliding scale and administered 20 units Humalog, and given insulin with meals 10 units. No new orders received.
[2019-09-28 08:19] VITALS: BP 135/58
[2019-09-28] MEDS: PANTOPRAZOLE SOD 40 MG TABEC PO SCH (09:34)
[2019-09-28] MEDS: IRON SUCROSE 100 MG in SODIUM CHLORIDE 0.9% 100 ML 100 ML IV SCH (09:57)
[2019-09-28 10:10] VITALS: BP 133/55
[2019-09-28 14:20] VITALS: BP 133/62
--- NOTE | 2019-09-28 15:31 | NUR ---
Called Dr. Crawford made aware patient checked her own sugar at time of discharge and glucose level 67 patient alert and oriented x4, verbalizing needs, and I gave patient orange juice and vanilla pudding. Received orders to keep her for about 1 hour recheck glucose if glucose within normal limits she may leave home and call her parts counter representative to schedule appointment.
--- NOTE | 2019-09-28 16:00 | NUR ---
Patient glucose 133, patient discharged home verbalized understanding of d/c instructions, escorted patient in wheel chair to front of the hospital.
--- NOTE | 2019-09-28 22:52 | NUR ---
Pulmonary and Critical Care Medicine DATE 09/28/2019 SUBJECTIVE: labile glucose. went to 59. naresh to 400s eating 100% sat RA fio2 REVIEW OF SYSTEMS: No headaches, no rash PHYSICAL EXAMINATION: VITAL SIGNS: vital signs reviewed per the chart record. GENERAL: NAD, AO x3 HEENT: Normocephalic and atraumatic. NECK: Supple. Throat midline. LUNGS: Bilateral air entry, mostly clear. CARDIOVASCULAR: S1, S2. No murmurs, rubs, or gallops. ABDOMEN: Softer, nontender, no rebound EXTREMITIES: No clubbing, no cyanosis, 1+ edema. INTEGUMENT: No rash. No purpura. LABORATORY DATA: no new updates IMPRESSION AND PLAN: 1. Primary severe metabolic acidosis. First time DKA onset. 2. Lactic acidosis mild, resolved. 3. Admitted with colitis. Functional ileus 4. Diabetes. Uncontrolled still 5. Acute kidney injury, better SQ insulin -- adjust SQ insulin per endocrine expert Escalate PO diet as tolerated Empiric abx Flagyl, and Zosyn. DVT ppx We will follow along closely. mobilization possible discharge per pt today Thank you Dr Crawford and Dr Kwong
== END 2019-09-28 16:38 | disposition home or self-care (01) | DRG 871 ==
LOC: ER 09:27 → ERHOLD 14:28 → MED/SURG3 09-18 13:45 → ICU 09-19 11:52 → IMCU 09-24 21:06
DX: A41.9 Sepsis, unspecified organism (principal); E11.10 Type 2 diabetes mellitus with ketoacidosis without coma; E87.2 Acidosis; N17.9 Acute kidney failure, unspecified; K55.9 Vascular disorder of intestine, unspecified; E87.0 Hyperosmolality and hypernatremia; E87.4 Mixed disorder of acid-base balance; A09 Infectious gastroenteritis and colitis, unspecified; R53.81 Other malaise; K21.9 Gastro-esophageal reflux disease without esophagitis; E11.22 Type 2 diabetes mellitus with diabetic chronic kidney disease; N18.9 Chronic kidney disease, unspecified; Z79.4 Long term (current) use of insulin; E03.9 Hypothyroidism, unspecified; E11.42 Type 2 diabetes mellitus with diabetic polyneuropathy; N85.8 Other specified noninflammatory disorders of uterus; E66.9 Obesity, unspecified; Z68.36 Body mass index [BMI] 36.0-36.9, adult; D64.9 Anemia, unspecified; E87.5 Hyperkalemia; E87.6 Hypokalemia
CPT/HCPCS: 36415; 36600; 71045; 74018; 74019; 74176; 74177; 80048; 80053; 81001; 81025; 82140; 82150; 82607; 82728; 82746; 82805; 82948; 83036; 83540; 83605; 83690; 83735; 84132; 84439; 84443; 84466; 85025; 85045; 85610; 85730; 87040; 87086; 87493; 94640; 96372; 99284; J0692; J1650; J1756; J1815; J1817; J1940; J2270; J2405; J2543; J3370; J3480; J7030; J7050; J7070; Q9967

== ENCOUNTER → 2020-11-08 | Day surgery (SDC) | payer OTHER ==
[2020-11-04 09:12] LABS: ANION GAP 15.9 mmol/L (8-16); BLOOD UREA NITROGEN 13 mg/dL (7-26); BUN/CREATININE RATIO 15 (6-25); CALCIUM 8.8 mg/dL (8.4-10.2); CARBON DIOXIDE 28 mmol/L (22-29); CHLORIDE 94 mmol/L (98-107); CREATININE, SERUM 0.84 mg/dL (0.57-1.11); EST GLOMERULAR FILTRATION RATE > 60 ML/MIN (60-); GLUCOSE 315 mg/dL (74-118); POTASSIUM 4.9 mmol/L (3.5-5.1); SODIUM 133 mmol/L (136-145)
[~2020-11-08] MED LIST changes: +ACETAMINOPHEN/CODEINE 300MG - 30MG TAB ONE; +BREO IH; +BUPIVACAINE HCL 0.5% INJ 30 ML VIAL INJ ONE; +CEFAZOLIN SOD 1 GM/NS 50ML 50 ML IV ONE; +DICYCLOMINE HCL10 MG PO; +FAMOTIDINE20 MG PO; +FLONASE ALLERG9.9 ML; +GABAPENTIN300 MG PO; +INSULIN REGULAR, HUMAN 100 UNIT/1 ML 3ML VIAL ONE; -LANTUS 3ML100 UNITS/; +LANTUS 3ML100 UNITS/ SC; +LANTUS 3ML100 UNITS/ SQ; +LEVOCETIRIZINE D5 MG PO; +LIDOCAINE HCL 2% LOCAL INJ 5 ML SDV VIAL INJ ONE; +MONTELUKAST SOD10 MG PO; +NOVOLOG100 UNIT/1 SQ; +NU-MAG71.5 MG PO; +ONDANSETRON HCL INJ 2MG/ML 2ML 2 MG/ML VIAL ONE; +PROPOFOL IV EMULSION 10 MG/ML 20 ML VIAL ONE; +SEVOFLURANE INHAL SOLN 250 ML PEN BTL ONE; +TIZANIDINE HCL2 M1 PO
[2020-11-08 07:18] LABS: ANION GAP 15.3 mmol/L (8-16); BLOOD UREA NITROGEN 12 mg/dL (7-26); BUN/CREATININE RATIO 16 (6-25); CALCIUM 8.9 mg/dL (8.4-10.2); CARBON DIOXIDE 28 mmol/L (22-29); CHLORIDE 101 mmol/L (98-107); CREATININE, SERUM 0.77 mg/dL (0.57-1.11); EST GLOMERULAR FILTRATION RATE > 60 ML/MIN (60-); GLUCOSE 179 mg/dL (74-118); POTASSIUM 4.3 mmol/L (3.5-5.1); SODIUM 140 mmol/L (136-145)
[2020-11-08 08:45] VITALS: BP 132/63
== END | disposition home or self-care (01) ==
LOC: OR 05:19
PROVIDERS: ATTEND Specialist
DX: M65.341 Trigger finger, right ring finger (principal); E11.9 Type 2 diabetes mellitus without complications; I10 Essential (primary) hypertension; E78.5 Hyperlipidemia, unspecified; E03.9 Hypothyroidism, unspecified; K21.9 Gastro-esophageal reflux disease without esophagitis; Z01.810 Encounter for preprocedural cardiovascular examination; Z01.812 Encounter for preprocedural laboratory examination; Z20.822 Contact with and (suspected) exposure to COVID-19; Z79.4 Long term (current) use of insulin; Z79.82 Long term (current) use of aspirin; Z68.41 Body mass index [BMI] 40.0-44.9, adult
CPT/HCPCS: 26055; 36415 ×2; 80048 ×2; 82948; 93005; J0690; J1817; U0002; J2001; J2405

== ENCOUNTER → 2021-07-25 | Outpatient (CLI) | payer OTHER ==
[~2021-07-25] MED LIST changes: -ACETAMINOPHEN/CODEINE 300MG - 30MG TAB ONE; -BUPIVACAINE HCL 0.5% INJ 30 ML VIAL INJ ONE; -CEFAZOLIN SOD 1 GM/NS 50ML 50 ML IV ONE; -INSULIN REGULAR, HUMAN 100 UNIT/1 ML 3ML VIAL ONE; -LIDOCAINE HCL 2% LOCAL INJ 5 ML SDV VIAL INJ ONE; -ONDANSETRON HCL INJ 2MG/ML 2ML 2 MG/ML VIAL ONE; -PROPOFOL IV EMULSION 10 MG/ML 20 ML VIAL ONE; -SEVOFLURANE INHAL SOLN 250 ML PEN BTL ONE
== END ==
LOC: US 07:31
PROVIDERS: ATTEND Internal Medicine Gastroenterology
DX: I85.00 Esophageal varices without bleeding (principal); K29.60 Other gastritis without bleeding; R07.0 Pain in throat; Z86.010 Personal history of colon polyps; Z68.39 Body mass index [BMI] 39.0-39.9, adult
CPT/HCPCS: 76705

== ENCOUNTER 2021-08-08 06:20 | Emergency (ER) | payer OTHER ==
[~2021-08-08] VITALS: Ht 147.3 cm; Wt 80.7 kg
== END 2021-08-08 06:49 | disposition home or self-care (01) ==
LOC: ER 06:22
DX: R10.13 Epigastric pain (principal); K29.70 Gastritis, unspecified, without bleeding; R11.0 Nausea; E11.9 Type 2 diabetes mellitus without complications; E03.9 Hypothyroidism, unspecified; K21.9 Gastro-esophageal reflux disease without esophagitis; E78.5 Hyperlipidemia, unspecified; E66.01 Morbid (severe) obesity due to excess calories
CPT/HCPCS: 99282

== ENCOUNTER → 2021-08-17 | Outpatient (CLI) | payer OTHER ==
[~2021-08-17] MED LIST changes: +IOPAMIDOL 370 MG/ML 200 ML INFUS..BTL INJ ONE; +SODIUM CHLORIDE 0.9% 50ML 50 ML ONE
[2021-08-17 17:16] LABS: CREATININE, SERUM 0.79 mg/dL (0.57-1.11)
== END ==
LOC: CT 15:41
PROVIDERS: ATTEND Internal Medicine Gastroenterology
DX: R10.10 Upper abdominal pain, unspecified (principal); R14.0 Abdominal distension (gaseous); R19.7 Diarrhea, unspecified
CPT/HCPCS: 36415; 74177; 82565; 84520; Q9967

== ENCOUNTER 2023-01-25 09:58 | Observation (INO) | payer OTHER ==
[~2023-01-25] VITALS: Ht 147.3 cm; Wt 84.4 kg
[~2023-01-25 09:58] MED LIST changes: -ASPIRIN81 MG; +ASPIRIN81 MG PO; -IOPAMIDOL 370 MG/ML 200 ML INFUS..BTL INJ ONE; -SODIUM CHLORIDE 0.9% 50ML 50 ML ONE
[2023-01-25] MEDS ORDERED: SODIUM CHLORIDE 0.9% 1000ML 1,000 ML IV STA ×2 (10:14→11:02)
[2023-01-25] MEDS ORDERED: ONDANSETRON HCL INJ 2MG/ML 2ML 2 MG/ML VIAL IV STA (10:14)
[2023-01-25] MEDS ORDERED: DICYCLOMINE HCL 20 MG/2 ML VIAL IM ONE (10:15)
[2023-01-25 10:31] LABS: BASOPHILS # (AUTO) 0.1 (0.0-0.1); BASOPHILS % 0.3 % (0.0-1.0); EOSINOPHILS % 0.1 % (0.0-6.0); HEMATOCRIT 39.7 % (34.2-44.1); HEMOGLOBIN 12.6 g/dL (12.0-16.0); LYMPHOCYTES # (AUTO) 1.2 (1.0-3.2); LYMPHOCYTES % 6.4 % (18.0-39.1); MEAN CORPUSCULAR HGB CONC 31.7 g/dL (31-35); MONOCYTES # (AUTO) 1.1 (0.2-0.8); MONOCYTES % 5.7 % (4.4-11.3); NEUTROPHILS # (AUTO) 16.8 (2.1-6.9); NEUTROPHILS % 86.9 % (38.7-80.0); PLATELET COUNT 379 x10e3/uL (140-360); RED BLOOD COUNT 4.67 x10e6/uL (3.6-5.1); RED CELL DISTRIBUTION WIDTH 14.9 % (11.7-14.4)
[2023-01-25 10:55] LABS: ALBUMIN 3.8 g/dL (3.5-5.0); ALBUMIN/GLOBULIN RATIO 1.1 (0.8-2.0); ANION GAP 16.6 mmol/L (8-16); CALCIUM 9.3 mg/dL (8.4-10.2); CREATININE, SERUM 1.14 mg/dL (0.57-1.11); MAGNESIUM 1.7 MG/DL (1.3-2.1); POTASSIUM 4.6 mmol/L (3.5-5.1)
[2023-01-25] MEDS ORDERED: IOPAMIDOL 370 MG/ML 100 ML INFUS..BTL INJ ONE (11:13)
[2023-01-25] MEDS ORDERED: INSULIN REGULAR, HUMAN 100 UNIT/1 ML IV ONE (11:30)
[2023-01-25 12:53] LABS: CLARITY,URINE CLEAR (CLEAR); COLOR,URINE YELLOW (YELLOW)
[2023-01-25 12:54] LABS: KETONES,URINE TRACE (NEGATIVE); LEUKOCYTE ESTERASE ,URINE NEGATIVE (NEGATIVE); NITRITE,URINE NEGATIVE (NEGATIVE); PROTEIN,URINE DIPSTICK NEGATIVE (NEGATIVE); URINE UROBILINOGEN 0.2 mg/dL (0.2 - 1)
[2023-01-25 13:00] LABS: BACTERIA,URINE FEW /HPF; EPITHELIAL CELLS,URINE FEW /LPF; WBC,URINE (MAN) 0-5 /HPF (0-5)
[2023-01-25] MEDS ORDERED: DEXTROSE 50% SYRINGE 50 ML IV PRN (13:30)
[2023-01-25 14:30] VITALS: BP 139/62; PULSE 77; RESP 17; TEMP 98; O2SAT 100
[2023-01-25] MEDS: SODIUM CHLORIDE 0.9% 1000ML 1,000 ML IV SCH ×2 (14:30→20:22)
[2023-01-25] MEDS ORDERED: RYBELSUS3 MG PO (14:36)
[2023-01-25 15:22] VITALS: BP 139/62; PULSE 77; RESP 17; TEMP 98; O2SAT 100
[2023-01-25] MEDS: INSULIN LISPRO 100 UNIT/1 ML 3ML VIAL SQ SCH ×2 (16:07→20:33)
[2023-01-25] MEDS: DICYCLOMINE HCL 10 MG CAP PO SCH (18:31)
[2023-01-25 20:00] VITALS: BP 140/60; PULSE 77; RESP 18; TEMP 99.1; O2SAT 98
[2023-01-25] MEDS: ONDANSETRON HCL INJ 2MG/ML 2ML 2 MG/ML VIAL IV PRN (20:23)
[2023-01-25] MEDS: Morphine 4mg INJECTION 4 MG/ML INJ IV PRN (20:23)
[2023-01-26] VITALS (9 sets, daily range): BP systolic 133–161; BP diastolic 52–76; PULSE 76–91; RESP 16–19; TEMP 97–98.9; O2SAT 95–100
[2023-01-26] MEDS: DICYCLOMINE HCL 10 MG CAP PO SCH ×4 (01:58→20:03)
[2023-01-26] MEDS: SODIUM CHLORIDE 0.9% 1000ML 1,000 ML IV SCH ×3 (05:10→23:39)
[2023-01-26] MEDS: ONDANSETRON HCL INJ 2MG/ML 2ML 2 MG/ML VIAL IV PRN (05:52)
[2023-01-26] MEDS: Morphine 4mg INJECTION 4 MG/ML INJ IV PRN ×2 (05:53→20:03)
[2023-01-26 05:59] LABS: BASOPHILS # (AUTO) 0.1 (0.0-0.1); BASOPHILS % 0.7 % (0.0-1.0); EOSINOPHILS # (AUTO) 0.1 (0.0-0.4); EOSINOPHILS % 0.6 % (0.0-6.0); HEMATOCRIT 39.2 % (34.2-44.1); HEMOGLOBIN 11.5 g/dL (12.0-16.0); LYMPHOCYTES # (AUTO) 1.9 (1.0-3.2); LYMPHOCYTES % 18.5 % (18.0-39.1); MEAN CORPUSCULAR HEMOGLOBIN 27.2 pg (28-32); MEAN CORPUSCULAR HGB CONC 29.3 g/dL (31-35); MEAN CORPUSCULAR VOLUME 92.7 fL (81-99); MONOCYTES # (AUTO) 0.6 (0.2-0.8); MONOCYTES % 6.3 % (4.4-11.3); NEUTROPHILS # (AUTO) 7.4 (2.1-6.9); NEUTROPHILS % 73.3 % (38.7-80.0); PLATELET COUNT 304 x10e3/uL (140-360); RED BLOOD COUNT 4.23 x10e6/uL (3.6-5.1); RED CELL DISTRIBUTION WIDTH 15.5 % (11.7-14.4)
[2023-01-26 06:35] LABS: ALBUMIN 3.2 g/dL (3.5-5.0); ALBUMIN/GLOBULIN RATIO 1.2 (0.8-2.0); ANION GAP 14.2 mmol/L (8-16); CALCIUM 8.3 mg/dL (8.4-10.2); CREATININE, SERUM 0.73 mg/dL (0.57-1.11); POTASSIUM 4.2 mmol/L (3.5-5.1)
[2023-01-26] MEDS: INSULIN LISPRO 100 UNIT/1 ML 3ML VIAL SQ SCH ×4 (08:52→20:02)
[2023-01-26] MEDS ORDERED: DIPHENHYDRAMINE HCL INJ 50 MG/ML VIAL IV PRN ×2 (16:46→17:00)
[2023-01-26] MEDS ORDERED: DOCUSATE SODIUM 100 MG CAP PO PRN (17:00)
[2023-01-26] MEDS ORDERED: ZOLPIDEM TARTRATE 5 MG TAB PO PRN (17:00)
[2023-01-26] MEDS ORDERED: POTASSIUM CHLORIDE 20 MEQ TAB CR PO PRN (17:00)
[2023-01-26] MEDS ORDERED: ACETAMINOPHEN 325 MG TAB PO PRN (17:00)
[2023-01-26] MEDS ORDERED: ONDANSETRON HCL INJ 2MG/ML 2ML 2 MG/ML VIAL IV PRN (17:00)
[2023-01-27 02:10] VITALS: BP 131/58; PULSE 75; RESP 16; TEMP 97.2; O2SAT 98
[2023-01-27 05:56] VITALS: BP 139/55; PULSE 78; RESP 16; TEMP 97.3; O2SAT 96
[2023-01-27 06:06] LABS: BASOPHILS % 0.4 % (0.0-1.0); EOSINOPHILS # (AUTO) 0.1 (0.0-0.4); EOSINOPHILS % 1.1 % (0.0-6.0); HEMATOCRIT 35.4 % (34.2-44.1); LYMPHOCYTES # (AUTO) 1.9 (1.0-3.2); LYMPHOCYTES % 17.3 % (18.0-39.1); MEAN CORPUSCULAR HEMOGLOBIN 26.9 pg (28-32); MEAN CORPUSCULAR HGB CONC 31.1 g/dL (31-35); MEAN CORPUSCULAR VOLUME 86.6 fL (81-99); MONOCYTES # (AUTO) 0.7 (0.2-0.8); MONOCYTES % 6.3 % (4.4-11.3); NEUTROPHILS # (AUTO) 8.2 (2.1-6.9); NEUTROPHILS % 74.4 % (38.7-80.0); PLATELET COUNT 292 x10e3/uL (140-360); RED BLOOD COUNT 4.09 x10e6/uL (3.6-5.1); RED CELL DISTRIBUTION WIDTH 15.3 % (11.7-14.4)
[2023-01-27 06:34] LABS: ANION GAP 16.3 mmol/L (8-16); CALCIUM 8.6 mg/dL (8.4-10.2); CREATININE, SERUM 0.75 mg/dL (0.57-1.11); POTASSIUM 4.3 mmol/L (3.5-5.1)
[2023-01-27] MEDS: DICYCLOMINE HCL 10 MG CAP PO SCH (08:38)
[2023-01-27] MEDS: INSULIN LISPRO 100 UNIT/1 ML 3ML VIAL SQ SCH ×2 (08:39→11:25)
[2023-01-27 08:41] VITALS: BP 160/59; PULSE 92; RESP 18; TEMP 98.4; O2SAT 99
[2023-01-27 08:45] VITALS: BP 160/59; PULSE 92; RESP 18; TEMP 98.4; O2SAT 99
[2023-01-27] MEDS ORDERED: INSULIN LISPRO 100 UNIT/1 ML 3ML VIAL SQ ONE (09:49)
[2023-01-27] MEDS: SODIUM CHLORIDE 0.9% 1000ML 1,000 ML IV SCH (11:24)
[2023-01-27 12:27] VITALS: BP 147/83; PULSE 79; RESP 17; TEMP 98.3; O2SAT 99
[2023-01-27] MEDS ORDERED: INSULIN GLARGINE SQ SCH (12:30)
[2023-01-27] MEDS ORDERED: GABAPENTIN 300 MG CAP PO SCH (15:00)
[2023-01-27] MEDS ORDERED: INSULIN LISPRO 100 UNIT/1 ML 3ML VIAL SQ SCH ×2 (16:30)
[2023-01-27] MEDS ORDERED: INSULIN GLARGINE SC SCH (21:00)
[2023-01-27] MEDS ORDERED: INSULIN GLARGINE 100 UNITS/ML VIAL SQ SCH (21:00)
[2023-01-27] MEDS ORDERED: FAMOTIDINE 20 MG TAB PO SCH (21:00)
[2023-01-27] MEDS ORDERED: SIMVASTATIN 40 MG TAB PO SCH (21:00)
[2023-01-28] MEDS ORDERED: LEVOTHYROXINE SODIUM 75 MCG TAB PO SCH (06:00)
[2023-01-28] MEDS ORDERED: MONTELUKAST SODIUM 10 MG TAB PO SCH (09:00)
[2023-01-28] MEDS ORDERED: LISINOPRIL 10 MG TAB PO SCH (09:00)
[2023-01-28] MEDS ORDERED: INSULIN GLARGINE 100 UNITS/ML VIAL SQ SCH (09:00)
== END 2023-01-27 14:58 | disposition home or self-care (01) ==
LOC: ER 10:04 → ERHOLD 13:40 → MED/SURG3 14:21
PROVIDERS: ADMIT Internal Medicine; ATTEND Internal Medicine
DX: E11.22 Type 2 diabetes mellitus with diabetic chronic kidney disease (principal); I12.9 Hypertensive chronic kidney disease with stage 1 through stage 4 chronic kidney disease, or unspecified chronic kidney disease; N17.9 Acute kidney failure, unspecified; N18.2 Chronic kidney disease, stage 2 (mild); E11.65 Type 2 diabetes mellitus with hyperglycemia; Z79.4 Long term (current) use of insulin; E78.5 Hyperlipidemia, unspecified; E03.9 Hypothyroidism, unspecified; E66.9 Obesity, unspecified; K52.9 Noninfective gastroenteritis and colitis, unspecified; E86.0 Dehydration; K21.9 Gastro-esophageal reflux disease without esophagitis; Z20.822 Contact with and (suspected) exposure to COVID-19; Z79.84 Long term (current) use of oral hypoglycemic drugs; Z79.82 Long term (current) use of aspirin; Z79.899 Other long term (current) drug therapy; Z68.38 Body mass index [BMI] 38.0-38.9, adult; Z87.440 Personal history of urinary (tract) infections
CPT/HCPCS: 0223U; 36415 ×3; 51700; 74177; 80053 ×3; 81001; 82948 ×3; 83036; 83690; 83735; 84484; 85025 ×3; 87040; 87086; 96361 ×2; 96372; 99285; G0378 ×3; J0500; J0696 ×3; J2270 ×2; J2405 ×2; J7030 ×3; Q9967